=== PATIENT | male | born 1955 | race Caucasian/White ===

== ENCOUNTER 2018-07-30 09:46 | Day surgery (SDC) | payer MEDICARE, OTHER ==
[~2018-07-30] VITALS: Ht 167.6 cm; Wt 51.0 kg
[~2018-07-30 09:46] MED LIST: ASPI325 PO; ASPI81CH PO; ATOR40TA PO; Aspirin EC81 MG PO; CILO100 PO; CLON.5 PO; DULO30 PO; HYDACE10B PO; HYDACE5 PO; IBUP400 PO; Metoprolol Tart25 MG PO; PROM25 PO; TRAZ100 PO; VENL150ER PO; VICODIN HP 10-1 EACH PO
== END 2018-07-30 19:10 | disposition home or self-care (01) ==
LOC: MHTC 09:46 → ICUE 13:46 → MHTC 19:10
PROC: B410ZZZ Fluoroscopy of Abdominal Aorta (ICD-10-PCS; principal; 2018-07-30)
PROC: 04JY3ZZ Inspection of Lower Artery, Percutaneous Approach (ICD-10-PCS; principal; 2018-07-30)
PROC: B41GZZZ Fluoroscopy of Left Lower Extremity Arteries (ICD-10-PCS; principal; 2018-07-30)
DX: I73.9 Peripheral vascular disease, unspecified (principal); I74.5 Embolism and thrombosis of iliac artery; I70.0 Atherosclerosis of aorta; F17.210 Nicotine dependence, cigarettes, uncomplicated; I25.10 Atherosclerotic heart disease of native coronary artery without angina pectoris; Z95.1 Presence of aortocoronary bypass graft; Z95.2 Presence of prosthetic heart valve; Z79.82 Long term (current) use of aspirin; Z79.891 Long term (current) use of opiate analgesic; Z79.899 Other long term (current) drug therapy
CPT/HCPCS: 36140; 75630; 75774; 76937; 85347; 99152; 99153; C1769; C1887; J1644; J2250; J2720; J3010; J7030; J7040; Q9967

== ENCOUNTER → 2018-10-28 | Outpatient (CLI) | payer MEDICARE, OTHER ==
[2018-10-29 14:20] LABS: Stool Occult Bld Immuno 1 Negative (NEGATIVE)
== END | disposition home or self-care (01) ==
LOC: LAB 10:30 → LAB SHORT 10:30
PROVIDERS: Internal Medicine
DX: D53.9 Nutritional anemia, unspecified (principal)
CPT/HCPCS: 82274

== ENCOUNTER → 2018-11-29 | Outpatient (CLI) | payer MEDICARE, OTHER ==
[~2018-11-29] MED LIST changes: +ALBU3IS INH; +ALBU90OI INH; +Aspir-Trin325 MG PO; +FAMO20; +HYDR-86; +Prednisone20 MG PO
[2018-11-29 08:54] LABS: BASOPHILS ABSOLUTE AUTO 0.04 K/mm3 (0.00-0.23); BASOPHILS PERCENT AUTO 1 % (0-2); EOSINOPHILS ABSOLUTE AUTO 0.38 K/mm3 (0.00-0.68); EOSINOPHILS PERCENT AUTO 5 % (0-6); Hematocrit 37.1 % (37.0-53.0); Hemoglobin 12.4 g/dL (13.5-17.5); IMMATURE GRAN ABSOLUTE AUTO 0.01 K/mm3 (0.00-0.10); IMMATURE GRAN PERCENT AUTO 0 % (0-1); LYMPHOCYTES ABSOLUTE AUTO 1.47 K/mm3 (0.84-5.20); LYMPHOCYTES PERCENT AUTO 21 % (21-46); MONOCYTES ABSOLUTE AUTO 0.52 K/mm3 (0.16-1.47); MONOCYTES PERCENT AUTO 7 % (4-13); Mean Corpuscular HGB Conc 33.4 g/dL (31.5-36.5); Mean Corpuscular Volume 102 fL (80-100); Mean Platelet Volume 9.5 fL (9.1-12.4); NEUTROPHILS ABSOLUTE AUTO 4.56 K/mm3 (1.96-9.15); NEUTROPHILS PERCENT AUTO 65 % (41-73); Platelet Count 193 K/mm3 (150-400); RDW Standard Deviation 45.4 fL (35.1-46.3); Red Blood Cell Count 3.65 M/mm3 (4.30-5.90); White Blood Cell Count 6.98 K/mm3 (4.00-11.30)
[2018-11-29 09:04] LABS: Alanine Aminotransfer (ALT/SGP 44 U/L (12-78); Albumin, Blood 3.5 g/dL (3.4-5.0); Albumin/Globulin Ratio 0.9 (0.8-1.8); Alk Phos 241 U/L (40-126); Anion Gap 7 mmol/L (6-16); Aspartate Aminotrans (AST/SGOT 29 U/L (12-37); Bilirubin, Total 0.4 mg/dL (0.1-1.0); Blood Urea Nitrogen 15 mg/dL (8-24); Bun/Creatinine Ratio 14.6 (12.0-20.0); CO2, Blood 29 mmol/L (21-32); Calcium, Blood 8.6 mg/dL (8.5-10.1); Chloride, Blood 101 mmol/L (98-108); Creatinine, Blood 1.03 mg/dL (0.60-1.20); Globulin, Blood 3.8 g/dL (2.2-4.0); Glomerular Filtration Rate >60 (60-); Glucose, Blood 79 mg/dL (70-99); Potassium, Blood 4.4 mmol/L (3.5-5.5); Sodium, Blood 137 mmol/L (136-145); Total Protein, Blood 7.3 g/dL (6.4-8.2)
[2018-11-29 09:23] LABS: International Normalized Ratio 1.03; Prothrombin Time Results 10.6 Sec (9.7-11.5)
== END | disposition home or self-care (01) ==
LOC: LAB EV 08:49 → LAB SHORT 08:49
PROVIDERS: General Practice
DX: K92.2 Gastrointestinal hemorrhage, unspecified (principal); R19.7 Diarrhea, unspecified
CPT/HCPCS: 80053; 85025; 85610; 85730

== ENCOUNTER → 2018-11-30 | Outpatient (CLI) | payer MEDICARE, OTHER ==
[2018-11-30 11:52] LABS: Adenovirus F 40/41 Not Detected (NOT DETECT); Astrovirus Not Detected (NOT DETECT); Campylobacter Sp Not Detected (NOT DETECT); Cryptosporidium Not Detected (NOT DETECT); Cyclospora Cayetanensis Not Detected (NOT DETECT); E. Coli O157 Not Detected (NOT DETECT); Entamoeba Histolytica Not Detected (NOT DETECT); Enteroaggregative E. coli-EAEC Not Detected (NOT DETECT); Enteropathogenic E. coli-EPEC Not Detected (NOT DETECT); Enterotoxigenic E. coli-ETEC Not Detected (NOT DETECT); Giardia Lamblia Not Detected (NOT DETECT); Norovirus GI/GII Not Detected (NOT DETECT); Plesiomonas Shigelloides Not Detected (NOT DETECT); Rotavirus A Not Detected (NOT DETECT); Salmonella Sp Not Detected (NOT DETECT); Shiga Toxin-prod E. coli-STEC Not Detected (NOT DETECT); Shigella/Enteroin E. coli-EIEC Not Detected (NOT DETECT); Vibrio Cholerae Not Detected (NOT DETECT); Vibrio Sp Not Detected (NOT DETECT); Yersinia Enterocolitica Not Detected (NOT DETECT)
[2018-11-30 14:21] LABS: Sapovirus Detected (NOT DETECT)
== END | disposition home or self-care (01) ==
LOC: LAB EV 07:30 → LAB SHORT 07:30
PROVIDERS: General Practice
DX: K92.2 Gastrointestinal hemorrhage, unspecified (principal)
CPT/HCPCS: 87507

== ENCOUNTER 2018-12-27 16:22 | Emergency (ER) | payer MEDICARE, OTHER ==
[~2018-12-27] VITALS: Ht 170.2 cm; Wt 48.1 kg
[~2018-12-27 16:22] MED LIST changes: -ALBU3IS INH; -ALBU90OI INH; -Aspir-Trin325 MG PO; -FAMO20; -HYDR-86; -Prednisone20 MG PO
[2018-12-27 17:20] LABS: BASOPHILS ABSOLUTE AUTO 0.04 K/mm3 (0.00-0.23); BASOPHILS PERCENT AUTO 1 % (0-2); EOSINOPHILS ABSOLUTE AUTO 0.01 K/mm3 (0.00-0.68); EOSINOPHILS PERCENT AUTO 0 % (0-6); Hematocrit 38.8 % (37.0-53.0); Hemoglobin 12.7 g/dL (13.5-17.5); IMMATURE GRAN ABSOLUTE AUTO 0.02 K/mm3 (0.00-0.10); IMMATURE GRAN PERCENT AUTO 0 % (0-1); LYMPHOCYTES ABSOLUTE AUTO 0.54 K/mm3 (0.84-5.20); LYMPHOCYTES PERCENT AUTO 12 % (21-46); MONOCYTES ABSOLUTE AUTO 0.52 K/mm3 (0.16-1.47); MONOCYTES PERCENT AUTO 11 % (4-13); Mean Corpuscular HGB 34.1 pg (26.0-34.0); Mean Corpuscular HGB Conc 32.7 g/dL (31.5-36.5); Mean Corpuscular Volume 104 fL (80-100); Mean Platelet Volume 8.8 fL (9.1-12.4); NEUTROPHILS ABSOLUTE AUTO 3.52 K/mm3 (1.96-9.15); NEUTROPHILS PERCENT AUTO 76 % (41-73); Platelet Count 194 K/mm3 (150-400); RDW Coefficient Variation 12.3 % (11.7-14.2); RDW Standard Deviation 47.1 fL (35.1-46.3); Red Blood Cell Count 3.72 M/mm3 (4.30-5.90); White Blood Cell Count 4.65 K/mm3 (4.00-11.30)
[2018-12-27 17:50] LABS: Alanine Aminotransfer (ALT/SGP 34 U/L (12-78); Albumin, Blood 3.8 g/dL (3.4-5.0); Alk Phos 95 U/L (50-136); Anion Gap 7 mmol/L (6-16); Aspartate Aminotrans (AST/SGOT 27 U/L (12-37); Bilirubin, Total 0.4 mg/dL (0.1-1.0); Blood Urea Nitrogen 12 mg/dL (8-24); Bun/Creatinine Ratio 13.4 (12.0-20.0); CO2, Blood 27 mmol/L (21-32); Calcium, Blood 8.4 mg/dL (8.5-10.1); Chloride, Blood 101 mmol/L (98-108); Glomerular Filtration Rate >60 (60-); Glucose, Blood 97 mg/dL (70-99); Potassium, Blood 3.9 mmol/L (3.5-5.5); Sodium, Blood 135 mmol/L (136-145); Total Protein, Blood 7.8 g/dL (6.4-8.2); Troponin I <0.015 ng/mL (0.000-0.040)
[2018-12-27] MEDS ORDERED: Prednisone20 MG PO (18:44)
[2018-12-27] MEDS ORDERED: ALBU3IS INH (18:44)
[2018-12-27] MEDS ORDERED: ALBU90OI INH (18:44)
[2018-12-31] MEDS ORDERED: Aspir-Trin325 MG PO (12:53)
== END 2018-12-27 18:59 | disposition home or self-care (01) ==
LOC: ER 16:22
PROVIDERS: Physician Assistant
DX: J44.1 Chronic obstructive pulmonary disease with (acute) exacerbation (principal); F32.9 Major depressive disorder, single episode, unspecified; F17.200 Nicotine dependence, unspecified, uncomplicated; Z79.899 Other long term (current) drug therapy; Z79.82 Long term (current) use of aspirin
CPT/HCPCS: 36415; 71046; 80053; 83880; 84484; 85025; 93005; 93010; 94640; 96374; 99284-25; J2920

== ENCOUNTER 2019-01-09 09:23 | Day surgery (SDC) | payer MEDICARE, OTHER ==
[~2019-01-09] VITALS: Ht 170.2 cm; Wt 50.3 kg
[~2019-01-09 09:23] MED LIST changes: +ALBU3IS INH; +ALBU90OI INH; +Aspir-Trin325 MG PO; +Prednisone20 MG PO
[2019-01-09] MEDS ORDERED: HYDR-86 (10:15)
[2019-01-09] MEDS ORDERED: FAMO20 (10:15)
--- NOTE | 2019-01-09 10:32 | NUR ---
01/09/19 1032 Catie Butler PATIENT CLEAR FROM WHEEZING AFTER THE DUONEB WAS COMPLETE
--- NOTE | 2019-01-09 11:14 | NUR ---
01/09/19 1114 Catie Butler SIMETHICONE FLUSH THROUGH BIOPSY PORT PER DR FINLEY
--- NOTE | 2019-01-09 13:19 | NUR ---
01/09/19 131Ramsey Petersen LATE ENTRY: DR. CRUZ AWARE OF PT'S WHEEZES POST COLONOSCOPY. PT HAS CHRONIC WHEEZE. PER DR. CRUZ, PT IS OK TO NOT RECEIVE NEBULIZER POST COLONOSCOPY AND THAT PT CAN TAKE HIS INHALER/NEBULIZER AT HOME. PT WAS 95% AT ROOM AIR POST COLONOSCOPY
== END 2019-01-09 13:11 | disposition home or self-care (01) ==
LOC: ORSCSDS 09:23
PROVIDERS: Student in an Organized Health Care Education/Training Program
PROC: 0DBN8ZX Excision of Sigmoid Colon, Via Natural or Artificial Opening Endoscopic, Diagnostic (ICD-10-PCS; principal; 2019-01-09 11:00)
PROC: 0DBH8ZX Excision of Cecum, Via Natural or Artificial Opening Endoscopic, Diagnostic (ICD-10-PCS; principal; 2019-01-09 11:00)
DX: K92.1 Melena (principal); D12.0 Benign neoplasm of cecum; D12.5 Benign neoplasm of sigmoid colon; K63.5 Polyp of colon; K64.4 Residual hemorrhoidal skin tags; K64.8 Other hemorrhoids; G47.33 Obstructive sleep apnea (adult) (pediatric); I25.10 Atherosclerotic heart disease of native coronary artery without angina pectoris; J44.9 Chronic obstructive pulmonary disease, unspecified; F17.210 Nicotine dependence, cigarettes, uncomplicated; E78.5 Hyperlipidemia, unspecified; Z85.818 Personal history of malignant neoplasm of other sites of lip, oral cavity, and pharynx; Z95.1 Presence of aortocoronary bypass graft; Z95.2 Presence of prosthetic heart valve; Z79.82 Long term (current) use of aspirin; Z79.899 Other long term (current) drug therapy
CPT/HCPCS: 88305; J2250; J7120

== ENCOUNTER 2019-06-03 06:30 | Day surgery (SDC) | payer MEDICARE, OTHER ==
[~2019-06-03] VITALS: Ht 167.6 cm; Wt 53.0 kg
[~2019-06-03 06:30] MED LIST changes: +FAMO20; +HYDR-86; +Norco 7.5-3251 EACH PO
--- NOTE | 2019-06-03 07:46 | NUR ---
INTO [facility] ADMISSION STARTED TO UNIT.
--- NOTE | 2019-06-03 08:13 | NUR ---
06/03/19 0812 Gilmar Srivastava 3-LEAD EKG REVIEWED WITH PHYSICIAN PRIOR TO START OF PROCEDURE.Patient to ENDO 2History, Chart, Medications and Allergies reviewed before start of procedure.MONITOR INTACT WITH CONTINUOUS PULSE OXIMETRY AND INTERMITTENT BP.Patient confirms NPO status and agrees with scheduled surgery.O2 VIA N/C INTACT THROUGHOUT SEDATION/PROCEDURE. See Anesthesia record
--- NOTE | 2019-06-03 08:54 | NUR ---
INTO STEP WITH RN. RECOVERY STARTED PATIENT WAKING VSS TAKEN AND PATIENT REQUESTED AND RECIEVED COFFEE
--- NOTE | 2019-06-03 09:08 | NUR ---
CALLED WILL BE COMING BACK INSIDE HOSPITAL. WILL CONTINUE CHECKING FOR HER
--- NOTE | 2019-06-03 09:24 | NUR ---
PATIENT SENT HOME AT THIS TIME WITH ALL BELONGINGS AND DISCHARGE INSTRUCTIONS
== END 2019-06-03 23:10 | disposition home or self-care (01) ==
LOC: ORSCMMR 06:30 → ORD 08:15 → ORSCMMR 08:15
PROVIDERS: Surgery
PROC: 0DH63UZ Insertion of Feeding Device into Stomach, Percutaneous Approach (ICD-10-PCS; principal; 2019-06-03 08:15)
DX: R13.10 Dysphagia, unspecified (principal); Z79.899 Other long term (current) drug therapy; E78.5 Hyperlipidemia, unspecified; J44.9 Chronic obstructive pulmonary disease, unspecified; G47.33 Obstructive sleep apnea (adult) (pediatric); F17.210 Nicotine dependence, cigarettes, uncomplicated
CPT/HCPCS: C1769; J0690; J2704; J7120

== ENCOUNTER 2020-02-11 22:52 | Emergency (ER) | payer MEDICARE, BC, OTHER ==
[~2020-02-11] VITALS: Ht 170.2 cm; Wt 45.8 kg
[2020-02-11 23:20] LABS: BASOPHILS ABSOLUTE AUTO 0.03 K/mm3 (0.00-0.23); BASOPHILS PERCENT AUTO 0 % (0-2); EOSINOPHILS ABSOLUTE AUTO 0.05 K/mm3 (0.00-0.68); EOSINOPHILS PERCENT AUTO 1 % (0-6); Hematocrit 39.5 % (37.0-53.0); Hemoglobin 13.1 g/dL (13.5-17.5); IMMATURE GRAN ABSOLUTE AUTO 0.03 K/mm3 (0.00-0.10); IMMATURE GRAN PERCENT AUTO 0 % (0-1); LYMPHOCYTES ABSOLUTE AUTO 0.68 K/mm3 (0.84-5.20); LYMPHOCYTES PERCENT AUTO 8 % (21-46); MONOCYTES ABSOLUTE AUTO 0.35 K/mm3 (0.16-1.47); MONOCYTES PERCENT AUTO 4 % (4-13); Mean Corpuscular HGB Conc 33.2 g/dL (31.5-36.5); Mean Platelet Volume 9.1 fL (9.1-12.4); NEUTROPHILS ABSOLUTE AUTO 7.67 K/mm3 (1.96-9.15); NEUTROPHILS PERCENT AUTO 87 % (41-73); Platelet Count 199 K/mm3 (150-400); RDW Coefficient Variation 12.6 % (11.7-14.2); RDW Standard Deviation 47.3 fL (35.1-46.3); Red Blood Cell Count 3.85 M/mm3 (4.30-5.90); White Blood Cell Count 8.81 K/mm3 (4.00-11.30)
[2020-02-11 23:33] LABS: Mean Corpuscular Volume 103 fL (80-100)
[2020-02-11 23:40] LABS: Alanine Aminotransfer (ALT/SGP 28 U/L (12-78); Albumin, Blood 3.4 g/dL (3.4-5.0); Albumin/Globulin Ratio 0.9 (0.8-1.8); Alk Phos 65 U/L (50-136); Anion Gap 5 mmol/L (6-16); Aspartate Aminotrans (AST/SGOT 22 U/L (12-37); Bilirubin, Total 0.3 mg/dL (0.1-1.0); Blood Urea Nitrogen 12 mg/dL (8-24); Bun/Creatinine Ratio 14.7 (12.0-20.0); CO2, Blood 30 mmol/L (21-32); Calcium, Blood 9.1 mg/dL (8.5-10.1); Chloride, Blood 104 mmol/L (98-108); Creatinine, Blood 0.82 mg/dL (0.60-1.20); Globulin, Blood 3.9 g/dL (2.2-4.0); Glomerular Filtration Rate >60 (60-); Glucose, Blood 133 mg/dL (70-99); Potassium, Blood 4.2 mmol/L (3.5-5.5); Sodium, Blood 139 mmol/L (136-145); Total Protein, Blood 7.3 g/dL (6.4-8.2); Troponin I <0.015 ng/mL (0.000-0.040)
[2020-02-12] MEDS ORDERED: PRED10 PO (00:33)
== END 2020-02-12 00:50 | disposition home or self-care (01) ==
LOC: ER 22:52
PROVIDERS: Emergency Medicine
DX: J44.1 Chronic obstructive pulmonary disease with (acute) exacerbation (principal); F32.9 Major depressive disorder, single episode, unspecified; F17.200 Nicotine dependence, unspecified, uncomplicated; Z79.899 Other long term (current) drug therapy
CPT/HCPCS: 36415; 80053; 83880; 84484; 85025; 93005; 93010; 99284-25

== ENCOUNTER → 2021-08-21 | Outpatient (CLI) | payer MEDICARE, BC ==
[~2021-08-21] MED LIST changes: +PRED10 PO
[2021-08-21 11:10] LABS: BASOPHILS ABSOLUTE AUTO 0.02 K/mm3 (0.00-0.23); BASOPHILS PERCENT AUTO 1 % (0-2); EOSINOPHILS ABSOLUTE AUTO 0.01 K/mm3 (0.00-0.68); EOSINOPHILS PERCENT AUTO 0 % (0-6); Hematocrit 39.6 % (37.0-53.0); Hemoglobin 13.8 g/dL (13.5-17.5); IMMATURE GRAN ABSOLUTE AUTO 0.02 K/mm3 (0.00-0.10); IMMATURE GRAN PERCENT AUTO 1 % (0-1); LYMPHOCYTES PERCENT AUTO 24 % (21-46); MONOCYTES PERCENT AUTO 11 % (4-13); Mean Corpuscular HGB 33.7 pg (26.0-34.0); Mean Corpuscular HGB Conc 34.8 g/dL (31.5-36.5); Mean Corpuscular Volume 97 fL (80-100); NEUTROPHILS ABSOLUTE AUTO 2.44 K/mm3 (1.96-9.15); NEUTROPHILS PERCENT AUTO 64 % (41-73); RDW Coefficient Variation 12.2 % (11.7-14.2); RDW Standard Deviation 43.4 fL (35.1-46.3); White Blood Cell Count 3.79 K/mm3 (4.00-11.30)
[2021-08-21 11:22] LABS: Alanine Aminotransfer (ALT/SGP 28 U/L (12-78); Albumin, Blood 3.3 g/dL (3.4-5.0); Albumin/Globulin Ratio 0.8 (0.8-1.8); Alk Phos 67 U/L (40-126); Anion Gap 6 mmol/L (6-16); Aspartate Aminotrans (AST/SGOT 34 U/L (12-37); Bilirubin, Total 0.4 mg/dL (0.1-1.0); Blood Urea Nitrogen 15 mg/dL (8-24); Bun/Creatinine Ratio 15.6 (12.0-20.0); CO2, Blood 34 mmol/L (21-32); Calcium, Blood 8.5 mg/dL (8.5-10.1); Chloride, Blood 93 mmol/L (98-108); Creatinine, Blood 0.96 mg/dL (0.60-1.20); Globulin, Blood 3.9 g/dL (2.2-4.0); Glomerular Filtration Rate >60 (60-); Glucose, Blood 90 mg/dL (70-99); Platelet Count 73 K/mm3 (150-400); Potassium, Blood 4.9 mmol/L (3.5-5.5); Sodium, Blood 133 mmol/L (136-145); Total Protein, Blood 7.2 g/dL (6.4-8.2); Troponin I <0.017 ng/mL (0.000-0.040)
== END | disposition home or self-care (01) ==
LOC: LAB SHORT 11:05
PROVIDERS: Physician Assistant Surgical
DX: U07.1 COVID-19 (principal); R09.02 Hypoxemia
CPT/HCPCS: 80053; 83880; 84484; 85025; 85379

== ENCOUNTER 2021-08-24 10:29 | Emergency (ER) | payer MEDICARE, BC ==
[~2021-08-24] VITALS: Ht 170.2 cm; Wt 46.3 kg
[2021-08-24 11:19] LABS: BASOPHILS ABSOLUTE AUTO 0.01 K/mm3 (0.00-0.23); BASOPHILS PERCENT AUTO 0 % (0-2); EOSINOPHILS PERCENT AUTO 0 % (0-6); Hematocrit 38.4 % (37.0-53.0); IMMATURE GRAN ABSOLUTE AUTO 0.05 K/mm3 (0.00-0.10); IMMATURE GRAN PERCENT AUTO 1 % (0-1); LYMPHOCYTES ABSOLUTE AUTO 0.26 K/mm3 (0.84-5.20); LYMPHOCYTES PERCENT AUTO 3 % (21-46); MONOCYTES ABSOLUTE AUTO 0.37 K/mm3 (0.16-1.47); MONOCYTES PERCENT AUTO 4 % (4-13); Mean Corpuscular HGB 33.3 pg (26.0-34.0); Mean Corpuscular HGB Conc 33.9 g/dL (31.5-36.5); Mean Corpuscular Volume 99 fL (80-100); Mean Platelet Volume 9.7 fL (9.1-12.4); NEUTROPHILS ABSOLUTE AUTO 7.67 K/mm3 (1.96-9.15); NEUTROPHILS PERCENT AUTO 92 % (41-73); Platelet Count 142 K/mm3 (150-400); RDW Coefficient Variation 12.3 % (11.7-14.2); RDW Standard Deviation 44.4 fL (35.1-46.3); White Blood Cell Count 8.36 K/mm3 (4.00-11.30)
[2021-08-24 11:43] LABS: Alanine Aminotransfer (ALT/SGP 46 U/L (12-78); Albumin, Blood 2.8 g/dL (3.4-5.0); Albumin/Globulin Ratio 0.7 (0.8-1.8); Alk Phos 60 U/L (50-136); Anion Gap 3 mmol/L (6-16); Aspartate Aminotrans (AST/SGOT 44 U/L (12-37); Bilirubin, Total 0.5 mg/dL (0.1-1.0); Blood Urea Nitrogen 17 mg/dL (8-24); Bun/Creatinine Ratio 25.6 (12.0-20.0); CO2, Blood 35 mmol/L (21-32); Calcium, Blood 8.8 mg/dL (8.5-10.1); Chloride, Blood 94 mmol/L (98-108); Creatinine, Blood 0.66 mg/dL (0.60-1.20); Glomerular Filtration Rate >60 (60-); Glucose, Blood 147 mg/dL (70-99); Potassium, Blood 4.6 mmol/L (3.5-5.5); Sodium, Blood 132 mmol/L (136-145); Total Protein, Blood 6.8 g/dL (6.4-8.2); Troponin I <0.015 ng/mL (0.000-0.040)
== END 2021-08-24 17:22 | disposition home or self-care (01) ==
LOC: ER 10:29
PROVIDERS: Emergency Medicine
DX: U07.1 COVID-19 (principal); J44.1 Chronic obstructive pulmonary disease with (acute) exacerbation; F17.200 Nicotine dependence, unspecified, uncomplicated; Z79.82 Long term (current) use of aspirin; Z79.899 Other long term (current) drug therapy
CPT/HCPCS: 36415; 71045; 80053; 83880; 84484; 85025; 93005; 93010; 99284-25

== ENCOUNTER → 2021-11-02 | Outpatient (CLI) | payer MEDICARE, BC ==
[2021-11-02 14:00] LABS: U Amphetamine Screen Not Detected; U Barbituate Screen Not Detected; U Benzodiazapine Screen Not Detected; U Buprenorphine Screen Not Detected; U Cannabinoids Screen Not Detected; U Cocaine Screen Not Detected; U Methadone Screen Not Detected; U Methamphetamine Screen Not Detected; U Opiates Screen DETECTED; U Oxycodone Screen Not Detected; U Phencyclidine Screen Not Detected; U Propoxyphene Screen Not Detected
== END | disposition home or self-care (01) ==
LOC: LAB SHORT 12:39 → LAB 12:39
PROVIDERS: Internal Medicine Hematology & Oncology
DX: Z51.81 Encounter for therapeutic drug level monitoring (principal); Z79.899 Other long term (current) drug therapy

== ENCOUNTER → 2021-11-27 | Outpatient (CLI) | payer MEDICARE, BC | END | disposition home or self-care (01) | LOC: LAB SHORT 09:17 → LAB 09:17 | DX: J44.1 Chronic obstructive pulmonary disease with (acute) exacerbation (principal) | CPT/HCPCS: 87070; 87077; 87186; 87205 ==

== ENCOUNTER → 2022-06-02 | Outpatient (CLI) | payer MEDICARE, BC ==
[2022-06-02 12:23] LABS: U Amphetamine Screen Not Detected; U Barbituate Screen Not Detected; U Benzodiazapine Screen Not Detected; U Buprenorphine Screen Not Detected; U Cannabinoids Screen Not Detected; U Cocaine Screen Not Detected; U Methadone Screen Not Detected; U Methamphetamine Screen Not Detected; U Opiates Screen DETECTED; U Oxycodone Screen Not Detected; U Phencyclidine Screen Not Detected; U Propoxyphene Screen Not Detected
== END | disposition home or self-care (01) ==
LOC: LAB 10:32 → LAB SHORT 10:32
PROVIDERS: Internal Medicine Hematology & Oncology
DX: Z51.81 Encounter for therapeutic drug level monitoring (principal); Z79.899 Other long term (current) drug therapy

== ENCOUNTER → 2022-07-03 | Outpatient (CLI) | payer MEDICARE, BC ==
[2022-07-03 15:36] LABS: U Amphetamine Screen Not Detected; U Barbituate Screen Not Detected; U Benzodiazapine Screen Not Detected; U Buprenorphine Screen Not Detected; U Cannabinoids Screen Not Detected; U Cocaine Screen Not Detected; U Methadone Screen Not Detected; U Methamphetamine Screen Not Detected; U Opiates Screen DETECTED; U Oxycodone Screen Not Detected; U Phencyclidine Screen Not Detected; U Propoxyphene Screen Not Detected
== END | disposition home or self-care (01) ==
LOC: LAB SHORT 10:40
PROVIDERS: Internal Medicine Hematology & Oncology
DX: Z51.81 Encounter for therapeutic drug level monitoring (principal); Z79.899 Other long term (current) drug therapy

== ENCOUNTER → 2022-08-03 | Outpatient (CLI) | payer MEDICARE, BC ==
[2022-08-03 13:25] LABS: U Amphetamine Screen Not Detected; U Barbituate Screen Not Detected; U Benzodiazapine Screen Not Detected; U Buprenorphine Screen Not Detected; U Cannabinoids Screen Not Detected; U Cocaine Screen Not Detected; U Methadone Screen Not Detected; U Methamphetamine Screen Not Detected; U Opiates Screen DETECTED; U Oxycodone Screen Not Detected; U Phencyclidine Screen Not Detected; U Propoxyphene Screen Not Detected
== END | disposition home or self-care (01) ==
LOC: LAB 11:36 → LAB SHORT 11:36
PROVIDERS: Internal Medicine Hematology & Oncology
DX: Z51.81 Encounter for therapeutic drug level monitoring (principal); Z79.899 Other long term (current) drug therapy

== ENCOUNTER → 2022-09-01 | Outpatient (CLI) | payer MEDICARE, BC ==
[2022-09-01 14:04] LABS: U Amphetamine Screen Not Detected; U Barbituate Screen Not Detected; U Benzodiazapine Screen Not Detected; U Buprenorphine Screen Not Detected; U Cannabinoids Screen Not Detected; U Cocaine Screen Not Detected; U Methadone Screen Not Detected; U Methamphetamine Screen Not Detected; U Opiates Screen DETECTED; U Oxycodone Screen Not Detected; U Phencyclidine Screen Not Detected; U Propoxyphene Screen Not Detected
== END ==
LOC: LAB 12:59 → LAB SHORT 12:59
PROVIDERS: Internal Medicine Hematology & Oncology
DX: Z79.899 Other long term (current) drug therapy (principal)
CPT/HCPCS: G0480

== ENCOUNTER → 2022-10-02 | Outpatient (CLI) | payer MEDICARE, BC ==
[2022-10-02 11:49] LABS: U Amphetamine Screen Not Detected; U Barbituate Screen Not Detected; U Benzodiazapine Screen Not Detected; U Buprenorphine Screen Not Detected; U Cannabinoids Screen Not Detected; U Cocaine Screen Not Detected; U Methadone Screen Not Detected; U Methamphetamine Screen Not Detected; U Opiates Screen DETECTED; U Oxycodone Screen Not Detected; U Phencyclidine Screen Not Detected; U Propoxyphene Screen Not Detected
== END | disposition home or self-care (01) ==
LOC: LAB SHORT 10:25 → LAB 10:25
PROVIDERS: Internal Medicine Hematology & Oncology
DX: Z51.81 Encounter for therapeutic drug level monitoring (principal); Z79.899 Other long term (current) drug therapy

== ENCOUNTER 2022-12-10 11:48 | Inpatient (IN) | payer MEDICARE, BC ==
[~2022-12-10] VITALS: Ht 170.2 cm; Wt 50.3 kg
[2022-12-10] MEDS ORDERED: ALBU90OI INH (12:08)
[2022-12-10] MEDS ORDERED: CARBIDOPA-LEVO1 EAC9 PO (12:09)
[2022-12-10 12:15] LABS: Base Excess Venous -0.3 mmol/L; Bicarbonate Venous 22.7 mmol/L (24.0-30.0); pH Blood Venous 7.32 (7.34-7.37)
[2022-12-10 12:31] LABS: Hemoglobin 13.7 g/dL (13.5-17.5); Mean Corpuscular HGB 34.3 pg (26.0-34.0); Mean Corpuscular HGB Conc 35.1 g/dL (31.5-36.5); Mean Corpuscular Volume 98 fL (80-100); Mean Platelet Volume 10.5 fL (9.1-12.4); Platelet Count 201 K/mm3 (150-400); RDW Coefficient Variation 12.7 % (11.7-14.2); RDW Standard Deviation 45.5 fL (35.1-46.3)
[2022-12-10 12:35] LABS: BAND PERCENT MAN 16 % (0-8); BASOPHILS PERCENT MAN 0 % (0-2); EOSINOPHILS PERCENT MAN 0 % (0-6); LYMPHOCYTES ABSOLUTE MAN 0.13 K/mm3 (0.84-5.20); LYMPHOCYTES PERCENT MAN 1 % (21-46); MONOCYTES PERCENT MAN 0 % (4-13); NEUTROPHILS ABSOLUTE MAN 13.56 K/mm3 (1.96-9.15); SEG NEUTROPHILS PERCENT MAN 83 % (41-73); TOTAL CELLS COUNTED 100
[2022-12-10 12:37] LABS: Albumin, Blood 2.2 g/dL (3.4-5.0); Albumin/Globulin Ratio 0.5 (0.8-1.8); Bilirubin, Total 0.9 mg/dL (0.1-1.0); Bun/Creatinine Ratio 40.2 (12.0-20.0); Calcium, Blood 8.9 mg/dL (8.5-10.1); Creatinine, Blood 1.22 mg/dL (0.60-1.20); Globulin, Blood 4.7 g/dL (2.2-4.0); Total Protein, Blood 6.9 g/dL (6.4-8.2)
[2022-12-10 13:20] LABS: Influenza A, PCR NEGATIVE (NEGATIVE); Influenza B, PCR NEGATIVE (NEGATIVE); Resp Syncytial Virus, PCR NEGATIVE (NEGATIVE); SARS-Cov-2 (COVID-19) PCR, MMC NEGATIVE (NEGATIVE)
--- NOTE | 2022-12-11 04:01 | NUR ---
SHIFT MOSTLY UNREMAKRABLE. AROUND 2300, CRITICAL LAB NOTIFICATION OF 2.7 LACTIC ACID. UP FROM 2.2 EARLIER IN DAY. NOTIFIED HOSPITALIST WHO ORDERED 500 ML NS BOLUS, INCREASE IN CONTINUOUS NS INFUSION TO 150MLS/HOUR, AND AN A SUBSEQUENT LACTIC ACID LAB DRAW IN THE MORNING. SBP HAVE CONTINUED TO RANGE BETWEEN MID 90s TO LOW 100s OVER COURSE OF SHIFT. PATIENT CONTINUES TO DENY ANY PAIN OR DISCOMFORT. SATTING >96%. CALL LIGHT LEFT WITHIN REACH.
[2022-12-11 04:49] LABS: Hematocrit 36.7 % (37.0-53.0); Hemoglobin 12.5 g/dL (13.5-17.5); Mean Corpuscular HGB 33.8 pg (26.0-34.0); Mean Corpuscular HGB Conc 34.1 g/dL (31.5-36.5); Mean Corpuscular Volume 99 fL (80-100); Mean Platelet Volume 9.7 fL (9.1-12.4); Platelet Count 186 K/mm3 (150-400); RDW Coefficient Variation 13.2 % (11.7-14.2); RDW Standard Deviation 48.2 fL (35.1-46.3); White Blood Cell Count 21.91 K/mm3 (4.00-11.30)
[2022-12-11 05:14] LABS: Albumin, Blood 1.9 g/dL (3.4-5.0); Albumin/Globulin Ratio 0.5 (0.8-1.8); Bilirubin, Total 0.5 mg/dL (0.1-1.0); Bun/Creatinine Ratio 37.3 (12.0-20.0); Calcium, Blood 8.2 mg/dL (8.5-10.1); Creatinine, Blood 0.91 mg/dL (0.60-1.20); Globulin, Blood 4.2 g/dL (2.2-4.0); Magnesium, Blood 2.6 mg/dL (1.6-2.4); Potassium, Blood 3.8 mmol/L (3.5-5.5); Total Protein, Blood 6.1 g/dL (6.4-8.2)
[2022-12-11 05:34] LABS: BAND PERCENT MAN 25 % (0-8); BASOPHILS PERCENT MAN 0 % (0-2); EOSINOPHILS PERCENT MAN 0 % (0-6); LYMPHOCYTES ABSOLUTE MAN 0.87 K/mm3 (0.84-5.20); LYMPHOCYTES PERCENT MAN 4 % (21-46); METAMYELOCYTE ABSOLUTE MAN 0.21 K/mm3 (0.00-0.00); METAMYELOCYTE PERCENT MAN 1 % (0-0); MONOCYTES ABSOLUTE MAN 0.21 K/mm3 (0.16-1.47); MONOCYTES PERCENT MAN 1 % (4-13); NEUTROPHILS ABSOLUTE MAN 20.59 K/mm3 (1.96-9.15); SEG NEUTROPHILS PERCENT MAN 69 % (41-73); TOTAL CELLS COUNTED 100
--- NOTE | 2022-12-11 17:47 | NUR ---
SHIFT SUMMARY NO ACUTE CHANGES DURING SHIFT. PT ALERT AND ORIENTED, CALLS APPROPRIATELY. PT REMAINS ON HIFLO, CURRENTLY 35L 50%, TITRATING PER RT TOLERATED. NS INFUSING AT 150ML/HR, IV ABX. NO C/O PAIN. WILL CONTINUE TO MONITOR. CALL LIGHT WITHIN REACH.
--- NOTE | 2022-12-11 19:06 | NUR ---
AWAKE. O2 PER HIGH FLOW (35L/50%). DENIED PAIN, REQUESTS RESP TX. CALL PLACED TO RT. RT TO GIVE TX. CALL LIGHT IN REACH
[2022-12-12 03:50] LABS: Vancomycin, Trough 8.1 ug/mL (5.0-10.0)
--- NOTE | 2022-12-12 04:38 | NUR ---
FLIGHT SECURITY SPECIALIST SUMMARY BP LOW NORMAL, OTHERWISE VSS. IVF OF NS INFUSING AT 150 ML/HR AND ANTIBIOTICS INFUSING PER MD ORDERS. SEE MAR FOR DETAILS. LUNG SOUNDS WHEEZE AND SOME DIMINISHED SOUNDS PER AUSCULTATION. VOICED DIFFICULTIES GETTING TO SLEEP. MD WAS NOTIFIED AND INITIALLY ATIVAN 0.5 MG PO ORDERED/GIVEN. MED INEFFECTIVE. LATER MD WAS NOTIFIED AND MELATONIN ORERED/GIVEN. SOME VERBALIZATION OF WANTING TO GET OUT OF BE "TO MOVE THE TRUCK" HE TRIED TO GET OUT OF BED A FEW TIMES. WAS REDIRECTED AND REORIENTED TO TIME AND SITUATION. AGREED TO REMAIN IN BED AND HAS BEEN RESTING QUIETLY WITH SOME WAKEFULNESS SINCE. CALL LIGHT IN REACH. O2 PER HIGH FLOW 35L/50%. SATS IN THE 90'S. WILL CONTINUE TO MONITOR
[2022-12-12 08:12] LABS: BASOPHILS ABSOLUTE AUTO 0.11 K/mm3 (0.00-0.23); BASOPHILS PERCENT AUTO 0 % (0-2); Hematocrit 31.2 % (37.0-53.0); Hemoglobin 10.5 g/dL (13.5-17.5); Mean Corpuscular HGB 34.1 pg (26.0-34.0); Mean Corpuscular HGB Conc 33.7 g/dL (31.5-36.5); Mean Corpuscular Volume 101 fL (80-100); Mean Platelet Volume 10.4 fL (9.1-12.4); Platelet Count 205 K/mm3 (150-400); RDW Coefficient Variation 13.7 % (11.7-14.2); RDW Standard Deviation 51.1 fL (35.1-46.3); Red Blood Cell Count 3.08 M/mm3 (4.30-5.90); White Blood Cell Count 27.59 K/mm3 (4.00-11.30)
[2022-12-12 08:21] LABS: EOSINOPHILS ABSOLUTE AUTO 0.01 K/mm3 (0.00-0.68); EOSINOPHILS PERCENT AUTO 0 % (0-6); IMMATURE GRAN ABSOLUTE AUTO 0.42 K/mm3 (0.00-0.10); IMMATURE GRAN PERCENT AUTO 2 % (0-1); LYMPHOCYTES ABSOLUTE AUTO 0.37 K/mm3 (0.84-5.20); LYMPHOCYTES PERCENT AUTO 1 % (21-46); MONOCYTES ABSOLUTE AUTO 0.14 K/mm3 (0.16-1.47); MONOCYTES PERCENT AUTO 1 % (4-13); NEUTROPHILS ABSOLUTE AUTO 26.54 K/mm3 (1.96-9.15); NEUTROPHILS PERCENT AUTO 96 % (41-73)
[2022-12-12 08:30] LABS: Albumin, Blood 1.7 g/dL (3.4-5.0); Albumin/Globulin Ratio 0.5 (0.8-1.8); Bilirubin, Total 0.3 mg/dL (0.1-1.0); Bun/Creatinine Ratio 36.4 (12.0-20.0); Calcium, Blood 8.1 mg/dL (8.5-10.1); Creatinine, Blood 0.85 mg/dL (0.60-1.20); Globulin, Blood 3.7 g/dL (2.2-4.0); Potassium, Blood 3.6 mmol/L (3.5-5.5); Total Protein, Blood 5.4 g/dL (6.4-8.2)
[2022-12-12 08:53] LABS: BAND PERCENT MAN 5 % (0-8); BASOPHILS PERCENT MAN 0 % (0-2); EOSINOPHILS PERCENT MAN 0 % (0-6); MONOCYTES PERCENT MAN 0 % (4-13); NEUTROPHILS ABSOLUTE MAN 27.59 K/mm3 (1.96-9.15); SEG NEUTROPHILS PERCENT MAN 95 % (41-73); TOTAL CELLS COUNTED 100
--- NOTE | 2022-12-12 18:18 | NUR ---
SHIFT SUMMARY: PT ALERT AND ORIENTED X2-3. PT WOULD STATE THAT HE KNOWS HE IS IN HOSPITAL BUT WILL QUICKLY STATE COMMENTS THAT PERTAIN TO BEING AT HOME. HAD TO REORIENT PT MULTIPLE TIMES TODAY HE THOUGHT HE WAS LEAVING. PT HAD AND FAMILY IN AND HAS NOT HAD EPISODES OF CONFUSION SINCE. RECEIVED IN REPORT THAT PT IS VERY ANXIOUS AT NIGHT AND HAS A DIFFICULT TIME SLEEPING. RECEIVED AN ORDER FOR 10MG MELATONIN AT BEDTIME AND A NICOTINE PATCH TO HELP WITH CRAVINGS. PT REMAINS ON HEATED HIGH FLOW AT 35 LPM AND O2 DOWN AT 40%. PT TOLERATING WELL WITH SATS >92%. PT TOLERATING ALL ABX TREATMENTS. PT RECEIVED CHEST XRAY THIS SHIFT FOR SOB AND FOLLOW-UP FOR PNEUMONIA. CALL LIGHT IN REACH. BED IN LOWEST POSITION. WILL CONTINUE TO MONITOR.
[2022-12-13 03:46] LABS: Hematocrit 30.8 % (37.0-53.0); Hemoglobin 10.5 g/dL (13.5-17.5); Mean Corpuscular HGB 33.8 pg (26.0-34.0); Mean Corpuscular HGB Conc 34.1 g/dL (31.5-36.5); Mean Corpuscular Volume 99 fL (80-100); Mean Platelet Volume 9.8 fL (9.1-12.4); Platelet Count 201 K/mm3 (150-400); RDW Coefficient Variation 13.7 % (11.7-14.2); RDW Standard Deviation 49.8 fL (35.1-46.3); Red Blood Cell Count 3.11 M/mm3 (4.30-5.90); White Blood Cell Count 22.88 K/mm3 (4.00-11.30)
[2022-12-13 04:04] LABS: Vancomycin, Trough 12.3 ug/mL (5.0-10.0)
--- NOTE | 2022-12-13 04:13 | NUR ---
SHIFT SUMMARY 67 YR M ADMITTED ON 12/10/22 FOR SEPSIS PNEUMONIA. DNR. PT WAS SOUNDING VERY WHEEZY ON EXPIRATION SO RT WAS CALLED FOR A BREATHING TX. INITIAL TX DID NOT PROVIDE ANY CHANGE SO RT INCREASED HIGH FLOW 02 TO 50 L @ 68%. PT COUGH WAS VERY WET SOUNDING BUT OVER A SHORT PERIOD OF TIME LUNG SOUNDS IMPROVED AND 02 SATS HAVE REMAINED STABLE IN THE 90'S. PT HAS BEEN RESTING/SLEEPING FOR MOST OF THIS SHIFT. EARLY A.M. VANCO TROUGH WAS ELEVATED AT 12.3 SO PHARMACY ADJUSTED VANCO DOSE. PT HAS BEEN PLEASANT AND COOPERATIVE AND HAS BEEN INDEPENDANT TO THE BATHROOM OR USING URINAL AT BEDSIDE.
[2022-12-13 04:25] LABS: Albumin, Blood 1.6 g/dL (3.4-5.0); Albumin/Globulin Ratio 0.5 (0.8-1.8); Bilirubin, Total 0.4 mg/dL (0.1-1.0); Bun/Creatinine Ratio 31.5 (12.0-20.0); Calcium, Blood 7.9 mg/dL (8.5-10.1); Creatinine, Blood 0.7 mg/dL (0.60-1.20); Globulin, Blood 3.5 g/dL (2.2-4.0); Potassium, Blood 3.1 mmol/L (3.5-5.5); Total Protein, Blood 5.1 g/dL (6.4-8.2)
[2022-12-13 04:42] LABS: BAND PERCENT MAN 1 % (0-8); BASOPHILS PERCENT MAN 0 % (0-2); EOSINOPHILS PERCENT MAN 0 % (0-6); LYMPHOCYTES ABSOLUTE MAN 0.22 K/mm3 (0.84-5.20); LYMPHOCYTES PERCENT MAN 1 % (21-46); MONOCYTES ABSOLUTE MAN 0.22 K/mm3 (0.16-1.47); MONOCYTES PERCENT MAN 1 % (4-13); NEUTROPHILS ABSOLUTE MAN 22.42 K/mm3 (1.96-9.15); SEG NEUTROPHILS PERCENT MAN 97 % (41-73); TOTAL CELLS COUNTED 100
--- NOTE | 2022-12-13 18:18 | NUR ---
Received report from ongoing nurse at bedside. Pt had multiple SOB/Wheezings epiosdes overnight. Airvo increased overnight. Pt seem to be doing a lot better. Pt is currently receiving a breathing treatment and doing well. Pt axox4. Pt states he seems to be feeling a lot better than last night. Pt had one episode of SOB where respiratory was paged for a prn breathing treatmen. VSS stable but HR a little elevated. Pt having trouble coughing up phlegm. Pt resting comfortably afterwards. Pt uses call light appropriate.
--- NOTE | 2022-12-13 19:10 | NUR ---
Report handoff given to nurse.
--- NOTE | 2022-12-14 03:58 | NUR ---
SHIFT UNREMARKABLE. PATIENT TOOK 2100 MEDICATIONS WITHOUT DIFFICULTY AND THEN SLEPT THROUGH MOST OF REMAINDER OF SHIFT. CONTINUOUS PULSE OXIMETER CONTINUES TO SHOW PATIENT HR RUNNING LOW TO HIGH 90s. O2 SATURATION REMAINS ABOVE 92% WITH CURRENT AIRVO IN PLACE. CALL LIGHT LEFT WITHIN REACH.
[2022-12-14 05:38] LABS: Hematocrit 32.9 % (37.0-53.0); Hemoglobin 11.4 g/dL (13.5-17.5); Mean Corpuscular HGB 33.9 pg (26.0-34.0); Mean Corpuscular HGB Conc 34.7 g/dL (31.5-36.5); Mean Corpuscular Volume 98 fL (80-100); Mean Platelet Volume 9.9 fL (9.1-12.4); Platelet Count 219 K/mm3 (150-400); RDW Coefficient Variation 13.7 % (11.7-14.2); RDW Standard Deviation 49.3 fL (35.1-46.3); Red Blood Cell Count 3.36 M/mm3 (4.30-5.90); White Blood Cell Count 13.34 K/mm3 (4.00-11.30)
[2022-12-14 06:02] LABS: BASOPHILS PERCENT MAN 0 % (0-2); EOSINOPHILS PERCENT MAN 0 % (0-6); LYMPHOCYTES ABSOLUTE MAN 0.13 K/mm3 (0.84-5.20); LYMPHOCYTES PERCENT MAN 1 % (21-46); MONOCYTES PERCENT MAN 0 % (4-13); SEG NEUTROPHILS PERCENT MAN 99 % (41-73); TOTAL CELLS COUNTED 100
[2022-12-14 06:09] LABS: Albumin, Blood 1.6 g/dL (3.4-5.0); Albumin/Globulin Ratio 0.4 (0.8-1.8); Bilirubin, Total 0.5 mg/dL (0.1-1.0); Bun/Creatinine Ratio 33.2 (12.0-20.0); Calcium, Blood 8.4 mg/dL (8.5-10.1); Creatinine, Blood 0.6 mg/dL (0.60-1.20); Globulin, Blood 4.1 g/dL (2.2-4.0); Potassium, Blood 3.8 mmol/L (3.5-5.5); Total Protein, Blood 5.7 g/dL (6.4-8.2)
--- NOTE | 2022-12-14 18:05 | NUR ---
Received report from ongoing nurse. Pt axox3. Pt VSS. Pt on airvo 50L/55% saturating at 91%. Will continue to monitor.
--- NOTE | 2022-12-14 19:12 | NUR ---
Report given to oncoming nurse.
--- NOTE | 2022-12-15 03:57 | NUR ---
SHIFT UNREMARKABLE. PATIENT TOOK 2100 MEDICATIONS WITHOUT DIFFICULTY THEN SLEPT THROUGH MUCH OF REMAINDER OF SHIFT. O2 SATURATION REMAINING ABOVE >90% ON 50 L VIA AIRVO. CALL LIGHT LEFT WITHIN REACH.
[2022-12-15 04:44] LABS: BASOPHILS ABSOLUTE AUTO 0.03 K/mm3 (0.00-0.23); BASOPHILS PERCENT AUTO 0 % (0-2); EOSINOPHILS PERCENT AUTO 0 % (0-6); Hematocrit 32.2 % (37.0-53.0); Hemoglobin 11.1 g/dL (13.5-17.5); IMMATURE GRAN ABSOLUTE AUTO 0.18 K/mm3 (0.00-0.10); IMMATURE GRAN PERCENT AUTO 1 % (0-1); LYMPHOCYTES ABSOLUTE AUTO 0.45 K/mm3 (0.84-5.20); LYMPHOCYTES PERCENT AUTO 3 % (21-46); MONOCYTES ABSOLUTE AUTO 0.27 K/mm3 (0.16-1.47); MONOCYTES PERCENT AUTO 2 % (4-13); Mean Corpuscular HGB 33.9 pg (26.0-34.0); Mean Corpuscular HGB Conc 34.5 g/dL (31.5-36.5); Mean Corpuscular Volume 99 fL (80-100); Mean Platelet Volume 10.1 fL (9.1-12.4); NEUTROPHILS ABSOLUTE AUTO 14.17 K/mm3 (1.96-9.15); NEUTROPHILS PERCENT AUTO 94 % (41-73); Platelet Count 282 K/mm3 (150-400); RDW Coefficient Variation 13.7 % (11.7-14.2); RDW Standard Deviation 49.9 fL (35.1-46.3); Red Blood Cell Count 3.27 M/mm3 (4.30-5.90)
[2022-12-15 05:03] LABS: Albumin, Blood 1.7 g/dL (3.4-5.0); Albumin/Globulin Ratio 0.4 (0.8-1.8); Bilirubin, Total 0.4 mg/dL (0.1-1.0); Bun/Creatinine Ratio 44.8 (12.0-20.0); Calcium, Blood 8.4 mg/dL (8.5-10.1); Creatinine, Blood 0.6 mg/dL (0.60-1.20); Globulin, Blood 3.8 g/dL (2.2-4.0); Potassium, Blood 3.8 mmol/L (3.5-5.5); Total Protein, Blood 5.5 g/dL (6.4-8.2)
--- NOTE | 2022-12-15 18:52 | NUR ---
No overnight events. Received report from ongoing nurse. Pt axox4. VSS are stable. Will continue to monitor.
[2022-12-16 04:59] LABS: BASOPHILS ABSOLUTE AUTO 0.01 K/mm3 (0.00-0.23); BASOPHILS PERCENT AUTO 0 % (0-2); EOSINOPHILS PERCENT AUTO 0 % (0-6); Hematocrit 31.8 % (37.0-53.0); Hemoglobin 10.8 g/dL (13.5-17.5); IMMATURE GRAN ABSOLUTE AUTO 0.14 K/mm3 (0.00-0.10); IMMATURE GRAN PERCENT AUTO 1 % (0-1); LYMPHOCYTES PERCENT AUTO 5 % (21-46); MONOCYTES ABSOLUTE AUTO 0.62 K/mm3 (0.16-1.47); MONOCYTES PERCENT AUTO 5 % (4-13); Mean Corpuscular HGB 33.8 pg (26.0-34.0); Mean Corpuscular Volume 99 fL (80-100); Mean Platelet Volume 9.7 fL (9.1-12.4); NEUTROPHILS PERCENT AUTO 89 % (41-73); Platelet Count 293 K/mm3 (150-400); RDW Coefficient Variation 13.6 % (11.7-14.2); RDW Standard Deviation 50.2 fL (35.1-46.3); White Blood Cell Count 12.77 K/mm3 (4.00-11.30)
--- NOTE | 2022-12-16 05:21 | NUR ---
PT A&O4, 15L AIRVO SATS LOW 90'S, NO COMPLIANTS OF PAIN OR DISCOMFORT THIS SHIFT, VSS, NO ACUTE OVERNIGHT EVENTS, CONTINUE POC
[2022-12-16 05:44] LABS: Bun/Creatinine Ratio 34.1 (12.0-20.0); Calcium, Blood 8.2 mg/dL (8.5-10.1); Creatinine, Blood 0.76 mg/dL (0.60-1.20); Potassium, Blood 3.9 mmol/L (3.5-5.5)
--- NOTE | 2022-12-16 08:01 | NUR ---
No overnight events. Received report from ongoing nurse. Pt axox4. VSS. Will continue to monitor.
[2022-12-17 05:03] LABS: BASOPHILS ABSOLUTE AUTO 0.01 K/mm3 (0.00-0.23); BASOPHILS PERCENT AUTO 0 % (0-2); EOSINOPHILS ABSOLUTE AUTO 0.04 K/mm3 (0.00-0.68); EOSINOPHILS PERCENT AUTO 0 % (0-6); Hematocrit 33.7 % (37.0-53.0); Hemoglobin 11.4 g/dL (13.5-17.5); IMMATURE GRAN ABSOLUTE AUTO 0.09 K/mm3 (0.00-0.10); IMMATURE GRAN PERCENT AUTO 1 % (0-1); LYMPHOCYTES ABSOLUTE AUTO 1.03 K/mm3 (0.84-5.20); LYMPHOCYTES PERCENT AUTO 10 % (21-46); MONOCYTES ABSOLUTE AUTO 0.65 K/mm3 (0.16-1.47); MONOCYTES PERCENT AUTO 7 % (4-13); Mean Corpuscular HGB 33.4 pg (26.0-34.0); Mean Corpuscular HGB Conc 33.8 g/dL (31.5-36.5); Mean Corpuscular Volume 99 fL (80-100); Mean Platelet Volume 9.6 fL (9.1-12.4); NEUTROPHILS ABSOLUTE AUTO 8.13 K/mm3 (1.96-9.15); NEUTROPHILS PERCENT AUTO 82 % (41-73); Platelet Count 313 K/mm3 (150-400); RDW Coefficient Variation 13.6 % (11.7-14.2); RDW Standard Deviation 49.7 fL (35.1-46.3); Red Blood Cell Count 3.41 M/mm3 (4.30-5.90); White Blood Cell Count 9.95 K/mm3 (4.00-11.30)
[2022-12-17 05:21] LABS: Bun/Creatinine Ratio 34.1 (12.0-20.0); Calcium, Blood 8.1 mg/dL (8.5-10.1); Creatinine, Blood 0.7 mg/dL (0.60-1.20); Potassium, Blood 3.8 mmol/L (3.5-5.5)
--- NOTE | 2022-12-17 05:22 | NUR ---
PT IS A&O4, UP WITH 1 TO BSC, 45L AIRVO SATS IN LOW 90'S THIS SHIFT, VSS, NO COMPLAINTS OF PAIN OR ACUTE OVERNIGHT EVENTS, CONTINUE POC
--- NOTE | 2022-12-17 19:14 | NUR ---
No over night events. axox4. vss. will continue to monitor.
[2022-12-18 04:37] LABS: BASOPHILS ABSOLUTE AUTO 0.01 K/mm3 (0.00-0.23); BASOPHILS PERCENT AUTO 0 % (0-2); EOSINOPHILS ABSOLUTE AUTO 0.08 K/mm3 (0.00-0.68); EOSINOPHILS PERCENT AUTO 1 % (0-6); Hematocrit 31.8 % (37.0-53.0); Hemoglobin 10.6 g/dL (13.5-17.5); IMMATURE GRAN ABSOLUTE AUTO 0.09 K/mm3 (0.00-0.10); IMMATURE GRAN PERCENT AUTO 1 % (0-1); LYMPHOCYTES ABSOLUTE AUTO 0.94 K/mm3 (0.84-5.20); LYMPHOCYTES PERCENT AUTO 12 % (21-46); MONOCYTES ABSOLUTE AUTO 0.55 K/mm3 (0.16-1.47); MONOCYTES PERCENT AUTO 7 % (4-13); Mean Corpuscular HGB 33.2 pg (26.0-34.0); Mean Corpuscular HGB Conc 33.3 g/dL (31.5-36.5); Mean Corpuscular Volume 100 fL (80-100); Mean Platelet Volume 9.6 fL (9.1-12.4); NEUTROPHILS ABSOLUTE AUTO 6.25 K/mm3 (1.96-9.15); NEUTROPHILS PERCENT AUTO 79 % (41-73); Platelet Count 272 K/mm3 (150-400); RDW Coefficient Variation 13.5 % (11.7-14.2); RDW Standard Deviation 49.3 fL (35.1-46.3); Red Blood Cell Count 3.19 M/mm3 (4.30-5.90); White Blood Cell Count 7.92 K/mm3 (4.00-11.30)
[2022-12-18 05:09] LABS: Bun/Creatinine Ratio 33.8 (12.0-20.0); Calcium, Blood 7.8 mg/dL (8.5-10.1); Creatinine, Blood 0.71 mg/dL (0.60-1.20); Potassium, Blood 4.1 mmol/L (3.5-5.5)
--- NOTE | 2022-12-18 05:50 | NUR ---
A/OX4; CURRENTLY CALM AND COOPERATIVE (ANXIOUS AT TIMES). DENIES PAIN. 1X ASSIST TO BSC /URINAL AT BEDSIDE. ON HEATED HIGH FLOW O2 AT 40L AND 42% FiO2. SATS LOW TO MID 90s. EXP WHEEZE NAYA. IV ABX PER ORDERS. SLEEP PROMOTED. CALL LIGHT IN REACH; ENCOURAGED TO MAKE NEEDS KNOWN. BED ALARM SET
--- NOTE | 2022-12-18 18:00 | NUR ---
Received report from ongoing nurse. Pt axox4. VSS stable. Will continue to monitor.
--- NOTE | 2022-12-19 06:14 | NUR ---
TONYA SLEPT WELL THROUGH THE NIGHT. 02 SATURATION REMAINED ABOVE 92% ON 8L HIGH FLOW NC. CALLS APPROPRIATLY FOR ASSISTANCE TO THE BATHROOM AND HAS HAD NO COMPLAINTS OF DISCOMFORT ALL NIGHT.
[2022-12-19 07:36] LABS: BASOPHILS ABSOLUTE AUTO 0.01 K/mm3 (0.00-0.23); BASOPHILS PERCENT AUTO 0 % (0-2); EOSINOPHILS ABSOLUTE AUTO 0.11 K/mm3 (0.00-0.68); EOSINOPHILS PERCENT AUTO 1 % (0-6); Hematocrit 34.2 % (37.0-53.0); Hemoglobin 11.2 g/dL (13.5-17.5); IMMATURE GRAN PERCENT AUTO 1 % (0-1); LYMPHOCYTES ABSOLUTE AUTO 1.23 K/mm3 (0.84-5.20); LYMPHOCYTES PERCENT AUTO 14 % (21-46); MONOCYTES PERCENT AUTO 7 % (4-13); Mean Corpuscular HGB 33.2 pg (26.0-34.0); Mean Corpuscular HGB Conc 32.7 g/dL (31.5-36.5); Mean Corpuscular Volume 102 fL (80-100); Mean Platelet Volume 9.6 fL (9.1-12.4); NEUTROPHILS ABSOLUTE AUTO 6.97 K/mm3 (1.96-9.15); NEUTROPHILS PERCENT AUTO 77 % (41-73); Platelet Count 301 K/mm3 (150-400); RDW Coefficient Variation 13.4 % (11.7-14.2); Red Blood Cell Count 3.37 M/mm3 (4.30-5.90); White Blood Cell Count 9.02 K/mm3 (4.00-11.30)
[2022-12-19 07:59] LABS: Bun/Creatinine Ratio 23.5 (12.0-20.0); Calcium, Blood 8.1 mg/dL (8.5-10.1); Creatinine, Blood 0.77 mg/dL (0.60-1.20); Potassium, Blood 3.9 mmol/L (3.5-5.5)
--- NOTE | 2022-12-19 18:34 | NUR ---
Received report from ongoing nurse. Pt resting comfortably in bed. Pt axox4. VSS. Will continue to monitor.
--- NOTE | 2022-12-20 04:38 | NUR ---
PT IS A&O4, SB TO THE BR, ON 3L NC TOLERATING WELL WITH SATS IN THE UPPER 90'S OVERNIGHT, VSS, NO COMPLAINTS OF PAIN OR DISCOMFORT THIS SHIFT, CONTINUE POC
[2022-12-20 07:01] LABS: BASOPHILS PERCENT AUTO 0 % (0-2); EOSINOPHILS ABSOLUTE AUTO 0.09 K/mm3 (0.00-0.68); EOSINOPHILS PERCENT AUTO 1 % (0-6); Hematocrit 31.7 % (37.0-53.0); Hemoglobin 10.5 g/dL (13.5-17.5); IMMATURE GRAN ABSOLUTE AUTO 0.07 K/mm3 (0.00-0.10); IMMATURE GRAN PERCENT AUTO 1 % (0-1); LYMPHOCYTES PERCENT AUTO 13 % (21-46); MONOCYTES ABSOLUTE AUTO 0.69 K/mm3 (0.16-1.47); MONOCYTES PERCENT AUTO 7 % (4-13); Mean Corpuscular HGB 33.5 pg (26.0-34.0); Mean Corpuscular HGB Conc 33.1 g/dL (31.5-36.5); Mean Corpuscular Volume 101 fL (80-100); Mean Platelet Volume 9.4 fL (9.1-12.4); NEUTROPHILS ABSOLUTE AUTO 7.27 K/mm3 (1.96-9.15); NEUTROPHILS PERCENT AUTO 78 % (41-73); Platelet Count 281 K/mm3 (150-400); RDW Coefficient Variation 13.4 % (11.7-14.2); RDW Standard Deviation 49.8 fL (35.1-46.3); Red Blood Cell Count 3.13 M/mm3 (4.30-5.90); White Blood Cell Count 9.32 K/mm3 (4.00-11.30)
[2022-12-20 07:25] LABS: Bun/Creatinine Ratio 24.9 (12.0-20.0); Calcium, Blood 8.2 mg/dL (8.5-10.1); Creatinine, Blood 0.8 mg/dL (0.60-1.20); Potassium, Blood 4.3 mmol/L (3.5-5.5)
[2022-12-20] MEDS ORDERED: BUSP10 PO (15:36)
[2022-12-20] MEDS ORDERED: FLUTICASONE-SA1 EAC1 INH (15:36)
[2022-12-20] MEDS ORDERED: GUAI600T33 PO (15:37)
[2022-12-20] MEDS ORDERED: Nicoderm Cq1 EAC1 TOP (15:38)
[2022-12-20] MEDS ORDERED: PRED20 PO (15:38)
[2022-12-20] MEDS ORDERED: QUET25 PO (15:39)
[2022-12-20] MEDS ORDERED: SPIRIVA RESPIMAT4 G3 INH (15:40)
--- NOTE | 2022-12-20 16:59 | NUR ---
Received report from ongoing nurse. Pt axox4. VSS stable Home [address] Discharge orders in place. Pt discharge with home 02 and high flow tubing. at bedside. Pt has all belongings with him. IV removed.
== END 2022-12-20 17:55 | disposition home health service (06) | DRG 871 ==
LOC: ER 11:48 → MEDS 13:18
PROVIDERS: Emergency Medicine; Internal Medicine; ADMIT Internal Medicine
PROC: 3E03329 Introduction of Other Anti-infective into Peripheral Vein, Percutaneous Approach (ICD-10-PCS; principal; 2022-12-10)
PROC: 5A09357 Assistance with Respiratory Ventilation, Less than 24 Consecutive Hours, Continuous Positive Airway Pressure (ICD-10-PCS; 2022-12-10)
PROC: 5A0945A Assistance with Respiratory Ventilation, 24-96 Consecutive Hours, High Flow/Velocity Cannula (ICD-10-PCS; 2022-12-11)
DX: A41.9 Sepsis, unspecified organism (principal); J18.9 Pneumonia, unspecified organism; J96.21 Acute and chronic respiratory failure with hypoxia; J44.0 Chronic obstructive pulmonary disease with (acute) lower respiratory infection; R64 Cachexia; N17.9 Acute kidney failure, unspecified; E87.1 Hypo-osmolality and hyponatremia; E46 Unspecified protein-calorie malnutrition; Z68.1 Body mass index [BMI] 19.9 or less, adult; R65.20 Severe sepsis without septic shock; Z66 Do not resuscitate; I25.10 Atherosclerotic heart disease of native coronary artery without angina pectoris; G47.33 Obstructive sleep apnea (adult) (pediatric); R13.12 Dysphagia, oropharyngeal phase; F32.A Depression, unspecified; G89.4 Chronic pain syndrome; I73.9 Peripheral vascular disease, unspecified; E87.6 Hypokalemia; F17.210 Nicotine dependence, cigarettes, uncomplicated; N28.9 Disorder of kidney and ureter, unspecified; G47.00 Insomnia, unspecified; Z20.822 Contact with and (suspected) exposure to COVID-19; Z71.6 Tobacco abuse counseling; Z85.828 Personal history of other malignant neoplasm of skin; Z95.2 Presence of prosthetic heart valve; Z95.1 Presence of aortocoronary bypass graft; Z92.3 Personal history of irradiation; Z98.890 Other specified postprocedural states; Z88.5 Allergy status to narcotic agent; Z79.899 Other long term (current) drug therapy; Z79.82 Long term (current) use of aspirin; Z79.02 Long term (current) use of antithrombotics/antiplatelets; Z79.891 Long term (current) use of opiate analgesic; Z79.52 Long term (current) use of systemic steroids; Z85.819 Personal history of malignant neoplasm of unspecified site of lip, oral cavity, and pharynx; Z90.49 Acquired absence of other specified parts of digestive tract; Z99.81 Dependence on supplemental oxygen; Z79.51 Long term (current) use of inhaled steroids
CPT/HCPCS: 0241U; 36415; 71045; 80048; 80053; 80202; 82803; 83605; 83735; 83880; 84145; 84484; 85025; 87040; 94640; 94644; 94664; 94761; 94762; 96361; 96365; 96367; 96375; 98960; 99285-25; A9270; J0456; J0692; J0696; J1650; J2920; J2930; J3370; J7030; J7040; J7050; J7512

== ENCOUNTER → 2023-01-01 | Outpatient (CLI) | payer MEDICARE, BC ==
[~2023-01-01] MED LIST changes: +BUSP10 PO; +CARBIDOPA-LEVO1 EAC9 PO; +FLUTICASONE-SA1 EAC1 INH; +GUAI600T33 PO; +Nicoderm Cq1 EAC1 TOP; +PRED20 PO; +QUET25 PO; +SPIRIVA RESPIMAT4 G3 INH
[2023-01-01 13:24] LABS: U Amphetamine Screen Not Detected; U Barbituate Screen Not Detected; U Benzodiazapine Screen Not Detected; U Buprenorphine Screen Not Detected; U Cannabinoids Screen Not Detected; U Cocaine Screen Not Detected; U Methadone Screen Not Detected; U Methamphetamine Screen Not Detected; U Opiates Screen DETECTED; U Oxycodone Screen Not Detected; U Phencyclidine Screen Not Detected; U Propoxyphene Screen Not Detected
== END | disposition home or self-care (01) ==
LOC: LAB SHORT 10:40
PROVIDERS: Internal Medicine Hematology & Oncology
DX: Z51.81 Encounter for therapeutic drug level monitoring (principal); Z79.899 Other long term (current) drug therapy

== ENCOUNTER → 2023-01-30 | Outpatient (CLI) | payer MEDICARE, BC ==
[2023-01-30 13:47] LABS: U Amphetamine Screen Not Detected; U Barbituate Screen Not Detected; U Benzodiazapine Screen Not Detected; U Buprenorphine Screen Not Detected; U Cannabinoids Screen Not Detected; U Cocaine Screen Not Detected; U Methadone Screen Not Detected; U Methamphetamine Screen Not Detected; U Opiates Screen DETECTED; U Oxycodone Screen Not Detected; U Phencyclidine Screen Not Detected; U Propoxyphene Screen Not Detected
== END | disposition home or self-care (01) ==
LOC: LAB 10:31 → LAB SHORT 10:31
PROVIDERS: Internal Medicine Hematology & Oncology
DX: Z51.81 Encounter for therapeutic drug level monitoring (principal); Z79.899 Other long term (current) drug therapy

== ENCOUNTER → 2023-04-11 | Outpatient (CLI) | payer MEDICARE, BC ==
[2023-04-11 13:49] LABS: U Amphetamine Screen Not Detected; U Barbituate Screen Not Detected; U Benzodiazapine Screen Not Detected; U Buprenorphine Screen Not Detected; U Cannabinoids Screen Not Detected; U Cocaine Screen Not Detected; U Methadone Screen Not Detected; U Methamphetamine Screen Not Detected; U Opiates Screen DETECTED; U Oxycodone Screen Not Detected; U Phencyclidine Screen Not Detected; U Propoxyphene Screen Not Detected
== END | disposition home or self-care (01) ==
LOC: LAB SHORT 11:45 → LAB 11:45
PROVIDERS: Internal Medicine Hematology & Oncology
DX: Z51.81 Encounter for therapeutic drug level monitoring (principal); Z79.899 Other long term (current) drug therapy

== ENCOUNTER → 2023-05-14 | Outpatient (CLI) | payer MEDICARE, BC | END | disposition home or self-care (01) | LOC: LAB SHORT 11:17 → PLD 11:17 | DX: D48.5 Neoplasm of uncertain behavior of skin (principal) | CPT/HCPCS: 88305 ==

== ENCOUNTER → 2023-05-24 | Outpatient (CLI) | payer MEDICARE, BC | END | disposition home or self-care (01) | LOC: PLD 14:57 → LAB SHORT 14:57 | DX: C44.529 Squamous cell carcinoma of skin of other part of trunk (principal) | CPT/HCPCS: 88305 ==

== ENCOUNTER → 2023-05-31 | Outpatient (CLI) | payer MEDICARE, BC ==
[~2023-05-31] MED LIST changes: +ASPIR 8181 M1 PO; -Aspir-Trin325 MG PO; +Norco 10-325 T1 EACH PO; -Norco 7.5-3251 EACH PO; +REMERON1510 PO; +STALEVO PO
[2023-05-31 15:06] LABS: U Amphetamine Screen Not Detected; U Barbituate Screen Not Detected; U Benzodiazapine Screen Not Detected; U Buprenorphine Screen Not Detected; U Cannabinoids Screen Not Detected; U Cocaine Screen Not Detected; U Methadone Screen Not Detected; U Methamphetamine Screen Not Detected; U Opiates Screen DETECTED; U Oxycodone Screen Not Detected; U Phencyclidine Screen Not Detected; U Propoxyphene Screen Not Detected
== END | disposition home or self-care (01) ==
LOC: LAB SHORT 13:17 → LAB 13:17
PROVIDERS: Internal Medicine Hematology & Oncology
DX: Z51.81 Encounter for therapeutic drug level monitoring (principal); Z79.899 Other long term (current) drug therapy
CPT/HCPCS: G0480

== ENCOUNTER 2023-06-14 16:54 | Inpatient (IN) | payer MEDICARE, BC ==
[~2023-06-14] VITALS: Ht 165.1 cm; Wt 54.4 kg
[~2023-06-14 16:54] MED LIST changes: -AZIT250 PO; -CEFP200 PO; -Prednisone10 MG PO; -REMERON1510 PO; -STALEVO PO; -VISBIOME 112.51 EACH PO
[2023-06-15 03:17] LABS: Hematocrit 32.2 % (37.0-53.0); Hemoglobin 10.7 g/dL (13.5-17.5); Mean Corpuscular HGB 32.5 pg (26.0-34.0); Mean Corpuscular HGB Conc 33.2 g/dL (31.5-36.5); Mean Corpuscular Volume 98 fL (80-100); Mean Platelet Volume 9.4 fL (9.1-12.4); Platelet Count 171 K/mm3 (150-400); RDW Coefficient Variation 12.6 % (11.7-14.2); RDW Standard Deviation 45.4 fL (35.1-46.3); Red Blood Cell Count 3.29 M/mm3 (4.30-5.90); White Blood Cell Count 6.84 K/mm3 (4.00-11.30)
[2023-06-15 03:21] VITALS: BP 110/58
[2023-06-15 03:43] LABS: BAND PERCENT MAN 28 % (0-8); BASOPHILS ABSOLUTE MAN 0.13 K/mm3 (0.00-0.23); BASOPHILS PERCENT MAN 2 % (0-2); EOSINOPHILS ABSOLUTE MAN 0.06 K/mm3 (0.00-0.68); EOSINOPHILS PERCENT MAN 1 % (0-6); LYMPHOCYTES ABSOLUTE MAN 0.68 K/mm3 (0.84-5.20); LYMPHOCYTES PERCENT MAN 10 % (21-46); METAMYELOCYTE ABSOLUTE MAN 0.13 K/mm3 (0.00-0.00); METAMYELOCYTE PERCENT MAN 2 % (0-0); MONOCYTES ABSOLUTE MAN 0.95 K/mm3 (0.16-1.47); MONOCYTES PERCENT MAN 14 % (4-13); MYELOCYTE ABSOLUTE MAN 0.06 K/mm3 (0.00-0.00); MYELOCYTE PERCENT MAN 1 % (0-0); NEUTROPHILS ABSOLUTE MAN 4.78 K/mm3 (1.96-9.15); SEG NEUTROPHILS PERCENT MAN 42 % (41-73); TOTAL CELLS COUNTED 100
[2023-06-15 03:51] LABS: Albumin, Blood 2.2 g/dL (3.4-5.0); Albumin/Globulin Ratio 0.6 (0.8-1.8); Bilirubin, Total 0.3 mg/dL (0.1-1.0); Bun/Creatinine Ratio 14.3 (12.0-20.0); Calcium, Blood 8.1 mg/dL (8.5-10.1); Creatinine, Blood 0.84 mg/dL (0.60-1.20); Globulin, Blood 3.8 g/dL (2.2-4.0); Potassium, Blood 4.5 mmol/L (3.5-5.5)
--- NOTE | 2023-06-15 05:20 | NUR ---
SHIFT SUMMARY NEW PATIENT ARRIVED TO UNIT FROM ED AT 03:18. IS A/Ox4, PLEASANT, COOPERATIVE. DENIES PAIN NOR DISCOMFORT. INTERMITTANT PRODUCTIVE COUGH. SPO2 MAINTAINING AT LOW 90s ON 2-3L NC. QUICKLY DESATS TO MID 80's WHILE COUGHING, QUICK RECOVERY. PATIENT STATES Hx OF COPD AND THAT THIS IS THE SECOND TIME BEING HERE FOR PNEUMONIA, LAST HERE IN NOVEMBER. DENIES SOB NOR DIFFICULTY BREATHING. SBA FOR TRANSFERS, INDEPENDANT WITH BED MOBILITY. EDUCATED ON FIRE SAFETY AND RISK OF INJURY R/T OXYGEN USE, PATIENT VERBALIZED UNDERSTANDING, DENIES ACCESS TO ANY SOURCES OF IGNITION. NO ACUTE CHANGES OVERNIGHT, BED LOW, CALL LIGHT WITHIN REACH.
[2023-06-15 07:21] VITALS: BP 100/57
[2023-06-15 17:50] VITALS: BP 101/61
--- NOTE | 2023-06-15 19:02 | NUR ---
SHIFT SUMMARY: PT A/O X 4, STANDBY ASSIST. PLEASANT AND COOPERATIVE. PT CONTINUES TO HAVE WET PRODUCTIVE COUGH. PT ON 3.5 LPM VIA NC. BASELINE IS 3 LPM PRN. PT HAD NO FURTHER CONCERNS.
--- NOTE | 2023-06-15 19:53 | NUR ---
NO SIGNS OF USING IGNITION SOURCES WHILE ROUNDING.
[2023-06-15 20:53] VITALS: BP 114/59
--- NOTE | 2023-06-15 23:57 | NUR ---
PT EDUCATED ON [facility] FIRE SAFETY IGNITION/EXPLOSIVE SOURCES NON SMOKING POLICY AND VERBALIZED UNDERSTANDING.
[2023-06-16 03:07] VITALS: BP 109/62
--- NOTE | 2023-06-16 03:14 | NUR ---
SHIFT SUMMARY NOC PT A/O X 4. PLEASANT AND COOPERATIVE WITH CARE. ON 3.5L/NC O2 SPO2 > 94%. PT RECEIVING PO AZITHROMYCIN AND ROCEPHIN FOR LLL PNA. PT IS RECEIVING NS INFUSING @ 50 ML/HR. PT SCHEDULED TO STAY IN HOSPITAL UNTIL SUNDAY WHEN PT SHOULD DISCHARGE HOME WHERE HE LIVES WITH . PT IS CURRENTLY RESTING WITH BED IN LOWEST POSITION, AND CALL LIGHT WITHIN REACH.
[2023-06-16] MEDS ORDERED: BUSP10 PO (04:24)
[2023-06-16] MEDS ORDERED: STALEVO PO (04:25)
[2023-06-16] MEDS ORDERED: QUET25 PO (04:26)
[2023-06-16] MEDS ORDERED: REMERON1510 PO (04:27)
[2023-06-16 05:25] LABS: Hematocrit 33.5 % (37.0-53.0); Hemoglobin 11.1 g/dL (13.5-17.5); Mean Corpuscular HGB 32.4 pg (26.0-34.0); Mean Corpuscular HGB Conc 33.1 g/dL (31.5-36.5); Mean Corpuscular Volume 98 fL (80-100); Mean Platelet Volume 9.9 fL (9.1-12.4); Platelet Count 204 K/mm3 (150-400); RDW Coefficient Variation 12.6 % (11.7-14.2); RDW Standard Deviation 45.2 fL (35.1-46.3); Red Blood Cell Count 3.43 M/mm3 (4.30-5.90); White Blood Cell Count 5.71 K/mm3 (4.00-11.30)
[2023-06-16 05:45] LABS: BAND PERCENT MAN 23 % (0-8); BASOPHILS PERCENT MAN 0 % (0-2); EOSINOPHILS PERCENT MAN 0 % (0-6); LYMPHOCYTES ABSOLUTE MAN 0.79 K/mm3 (0.84-5.20); LYMPHOCYTES PERCENT MAN 14 % (21-46); METAMYELOCYTE ABSOLUTE MAN 0.17 K/mm3 (0.00-0.00); METAMYELOCYTE PERCENT MAN 3 % (0-0); MONOCYTES ABSOLUTE MAN 0.22 K/mm3 (0.16-1.47); MONOCYTES PERCENT MAN 4 % (4-13); NEUTROPHILS ABSOLUTE MAN 4.51 K/mm3 (1.96-9.15); SEG NEUTROPHILS PERCENT MAN 56 % (41-73); TOTAL CELLS COUNTED 100
[2023-06-16 05:59] LABS: Albumin, Blood 2.1 g/dL (3.4-5.0); Albumin/Globulin Ratio 0.5 (0.8-1.8); Bilirubin, Total 0.4 mg/dL (0.1-1.0); Bun/Creatinine Ratio 17.5 (12.0-20.0); Calcium, Blood 8.5 mg/dL (8.5-10.1); Creatinine, Blood 0.8 mg/dL (0.60-1.20); Globulin, Blood 4.1 g/dL (2.2-4.0); Phosphorus, Blood 1.8 mg/dL (2.5-4.9); Potassium, Blood 4.5 mmol/L (3.5-5.5); Total Protein, Blood 6.2 g/dL (6.4-8.2)
[2023-06-16 07:19] VITALS: BP 122/61
[2023-06-16 15:11] VITALS: BP 106/70
--- NOTE | 2023-06-16 18:03 | NUR ---
SHIFT SUMMARY PT A&OX4 AND PLEASANT. INDEPENDENT IN ROOM. DENIES PAIN OR SOB. SATING AT 97% ON 3.5L OF OXYGEN. PT REPORTS SPUTUM BECOMING LESS YELLOW AND MORE CLEAR. VSS FAMILY AT BEDSIDE IN AFTERNOON. PT REMINDED OF POSSIBLE SOURCES OF IGNITION AND NO SMOKING POLICY. BED IN LOWEST POSITION AND CALL LIGHT IN REACH.
[2023-06-16 20:06] VITALS: BP 121/70
--- NOTE | 2023-06-16 23:55 | NUR ---
PT EDUCATED ON [facility] FIRE SAFETY IGNITION/EXPLOSIVE SOURCES NON SMOKING POLICY AND VERBALIZED UNDERSTANDING.
--- NOTE | 2023-06-17 02:37 | NUR ---
SHIFT SUMMARY NOC PT A/O X 4. PLEASANT AND COOPERATIVE WITH CARE. NO ACUTE CHANGES TO REPORT. PT SOLU MEDROL SCHEDULE CHANGED IN PREPARATION FOR CHANGE TO PO PREDNISONE FOR DISCHARGE HOME SUNDAY. STILL RECEIVING ABX FOR PNA. PT IS CURRENTLY RESTING WITH BED IN LOWEST POSITION, AND CALL LIGHT WITHIN REACH.
[2023-06-17 05:31] VITALS: BP 106/59
[2023-06-17 07:22] VITALS: BP 116/66
[2023-06-17] MEDS ORDERED: AZIT250 PO (10:40)
[2023-06-17] MEDS ORDERED: CEFP200 PO (10:46)
[2023-06-17] MEDS ORDERED: VISBIOME 112.51 EACH PO (10:46)
[2023-06-17] MEDS ORDERED: Prednisone10 MG PO (10:47)
--- NOTE | 2023-06-17 12:01 | NUR ---
PT DISCHARGED HOME. DC INSTRUCTIONS AND EDUCATION MATERIAL EXPLAINED TO PT AND . NO NEW QUESTIONS OR CONCERNS. PERSCRIPTIONS FAXED TO [facility] PER PT REQUEST. DR DE LUNA NOTIFIED THAT [facility] IS NOT OPEN ON SUNDAY. STATED THAT SINCE PT ALREADY RECIEVED ZITHROMAX AND ROCEPHIN THIS MORNING, HE WAS OK TO WEATHER REPORTER PERSCRIPTIONS TOMORROW. PT WAS INFORMED OF 'S INSTRUCTIONS. IV DC'D. ALL BELONGINGS SENT HOME WITH PT. PT TAKEN BY WHEELCHAIR TO WAITING VEHICLE.
== END 2023-06-17 11:48 | disposition home or self-care (01) | DRG 871 ==
LOC: ER 16:54 → MEDS 06-15 00:24 → ENPENDDIS 06-17 09:58 → MEDS 06-17 11:48
PROVIDERS: Hospitalist; Student in an Organized Health Care Education/Training Program; ADMIT Internal Medicine
DX: A41.9 Sepsis, unspecified organism (principal); J18.9 Pneumonia, unspecified organism; J96.21 Acute and chronic respiratory failure with hypoxia; N17.9 Acute kidney failure, unspecified; J98.11 Atelectasis; J44.1 Chronic obstructive pulmonary disease with (acute) exacerbation; J44.0 Chronic obstructive pulmonary disease with (acute) lower respiratory infection; J90 Pleural effusion, not elsewhere classified; Z66 Do not resuscitate; F17.210 Nicotine dependence, cigarettes, uncomplicated; G89.4 Chronic pain syndrome; I73.9 Peripheral vascular disease, unspecified; M25.559 Pain in unspecified hip; M25.579 Pain in unspecified ankle and joints of unspecified foot; F32.9 Major depressive disorder, single episode, unspecified; M79.606 Pain in leg, unspecified; B96.89 Other specified bacterial agents as the cause of diseases classified elsewhere; Z79.899 Other long term (current) drug therapy; Z79.51 Long term (current) use of inhaled steroids; Z95.828 Presence of other vascular implants and grafts; Z85.819 Personal history of malignant neoplasm of unspecified site of lip, oral cavity, and pharynx; Z79.52 Long term (current) use of systemic steroids; Z79.82 Long term (current) use of aspirin; Z88.5 Allergy status to narcotic agent; Z79.891 Long term (current) use of opiate analgesic; Z90.49 Acquired absence of other specified parts of digestive tract; Z95.2 Presence of prosthetic heart valve; Z95.1 Presence of aortocoronary bypass graft; Z98.890 Other specified postprocedural states
CPT/HCPCS: 36415; 71260; 80053; 83605; 83735; 84100; 84484; 85025; 85379; 87070; 87205; 93005; 93010; 94640; 94664; 94760; 94762; 96365-59; 96368; 99285-25; A9270; J0456; J0696; J2930; J7030; J7050; J7512; Q9967

== ENCOUNTER → 2023-06-14 | Outpatient (CLI) | payer MEDICARE, BC ==
[~2023-06-14] MED LIST changes: +AZIT250 PO; +CEFP200 PO; +Prednisone10 MG PO; +VISBIOME 112.51 EACH PO
[2023-06-14 16:03] LABS: Hematocrit 38.7 % (37.0-53.0); Hemoglobin 13.1 g/dL (13.5-17.5); Mean Corpuscular HGB 32.9 pg (26.0-34.0); Mean Corpuscular HGB Conc 33.9 g/dL (31.5-36.5); Mean Corpuscular Volume 97 fL (80-100); Mean Platelet Volume 9.6 fL (9.1-12.4); Platelet Count 201 K/mm3 (150-400); RDW Coefficient Variation 12.5 % (11.7-14.2); RDW Standard Deviation 45.1 fL (35.1-46.3); Red Blood Cell Count 3.98 M/mm3 (4.30-5.90); White Blood Cell Count 4.66 K/mm3 (4.00-11.30)
[2023-06-14 16:08] LABS: Albumin/Globulin Ratio 0.6 (0.8-1.8); Bilirubin, Total 0.6 mg/dL (0.1-1.0); Bun/Creatinine Ratio 12.1 (12.0-20.0); Calcium, Blood 9.8 mg/dL (8.5-10.1); Creatinine, Blood 1.32 mg/dL (0.60-1.20); Globulin, Blood 5.1 g/dL (2.2-4.0); Potassium, Blood 4.4 mmol/L (3.5-5.5); Total Protein, Blood 8.1 g/dL (6.4-8.2)
[2023-06-14 16:39] LABS: BAND PERCENT MAN 32 % (0-8); BASOPHILS PERCENT MAN 0 % (0-2); EOSINOPHILS PERCENT MAN 0 % (0-6); LYMPHOCYTES ABSOLUTE MAN 0.65 K/mm3 (0.84-5.20); LYMPHOCYTES PERCENT MAN 14 % (21-46); MONOCYTES ABSOLUTE MAN 0.46 K/mm3 (0.16-1.47); MONOCYTES PERCENT MAN 10 % (4-13); NEUTROPHILS ABSOLUTE MAN 3.54 K/mm3 (1.96-9.15); SEG NEUTROPHILS PERCENT MAN 44 % (41-73); TOTAL CELLS COUNTED 100
== END | disposition home or self-care (01) ==
LOC: LAB SHORT 15:51 → LAB 15:51
PROVIDERS: Emergency Medicine
DX: R00.0 Tachycardia, unspecified (principal)
CPT/HCPCS: 80053; 84484; 85025

== ENCOUNTER → 2023-08-30 | Outpatient (CLI) | payer MEDICARE, BC ==
[~2023-08-30] MED LIST changes: +AZIT250 PO; +CEFP200 PO; +Prednisone10 MG PO; +REMERON1510 PO; +STALEVO PO; +VISBIOME 112.51 EACH PO
[2023-08-30 15:17] LABS: U Amphetamine Screen Not Detected; U Barbituate Screen Not Detected; U Benzodiazapine Screen Not Detected; U Cocaine Screen Not Detected; U Methadone Screen Not Detected; U Methamphetamine Screen Not Detected; U Opiates Screen DETECTED
[2023-08-30 15:18] LABS: U Buprenorphine Screen Not Detected; U Cannabinoids Screen Not Detected; U Oxycodone Screen Not Detected; U Phencyclidine Screen Not Detected; U Propoxyphene Screen Not Detected
== END ==
LOC: LAB SHORT 13:11 → LAB 13:11
PROVIDERS: Internal Medicine Hematology & Oncology
DX: Z51.81 Encounter for therapeutic drug level monitoring (principal); Z79.899 Other long term (current) drug therapy
CPT/HCPCS: G0480

== ENCOUNTER → 2023-10-30 | Outpatient (CLI) | payer MEDICARE, BC ==
[~2023-10-30] MED LIST changes: +CEPH500 PO; +HYDROCODONE-AC1 EAC7 PO; +PRAVASTATIN SOD20 MG PO
[2023-10-30 14:41] LABS: U Amphetamine Screen Not Detected; U Barbituate Screen Not Detected; U Benzodiazapine Screen Not Detected; U Buprenorphine Screen Not Detected; U Cannabinoids Screen Not Detected; U Cocaine Screen Not Detected; U Methadone Screen Not Detected; U Methamphetamine Screen Not Detected; U Opiates Screen DETECTED; U Oxycodone Screen Not Detected; U Phencyclidine Screen Not Detected
== END | disposition home or self-care (01) ==
LOC: LAB 13:08 → LAB SHORT 13:08
PROVIDERS: Internal Medicine Hematology & Oncology
DX: C04.9 Malignant neoplasm of floor of mouth, unspecified (principal); G89.4 Chronic pain syndrome; Z79.899 Other long term (current) drug therapy

== ENCOUNTER 2023-11-22 19:37 | Emergency (ER) | payer MEDICARE, BC ==
[~2023-11-22] VITALS: Ht 165.1 cm; Wt 50.8 kg
[~2023-11-22 19:37] MED LIST changes: -CEPH500 PO; -HYDROCODONE-AC1 EAC7 PO; -PRAVASTATIN SOD20 MG PO
[2023-11-22 20:09] LABS: Hemoglobin 12.2 g/dL (13.5-17.5); Mean Corpuscular HGB 33.1 pg (26.0-34.0); Mean Corpuscular Volume 100 fL (80-100); Mean Platelet Volume 9.6 fL (9.1-12.4); Platelet Count 204 K/mm3 (150-400); RDW Coefficient Variation 11.9 % (11.7-14.2); RDW Standard Deviation 44.1 fL (35.1-46.3); Red Blood Cell Count 3.69 M/mm3 (4.30-5.90); White Blood Cell Count 5.95 K/mm3 (4.00-11.30)
[2023-11-22 20:28] LABS: Albumin, Blood 2.9 g/dL (3.4-5.0); Albumin/Globulin Ratio 0.6 (0.8-1.8); Bilirubin, Total 0.8 mg/dL (0.1-1.0); Bun/Creatinine Ratio 14.8 (12.0-20.0); Calcium, Blood 9.6 mg/dL (8.5-10.1); Creatinine, Blood 0.81 mg/dL (0.60-1.20); Globulin, Blood 4.9 g/dL (2.2-4.0); Potassium, Blood 3.9 mmol/L (3.5-5.5); Total Protein, Blood 7.8 g/dL (6.4-8.2)
[2023-11-22 20:55] LABS: BAND PERCENT MAN 27 % (0-8); BASOPHILS ABSOLUTE MAN 0.05 K/mm3 (0.00-0.23); BASOPHILS PERCENT MAN 1 % (0-2); EOSINOPHILS PERCENT MAN 0 % (0-6); LYMPHOCYTES ABSOLUTE MAN 1.07 K/mm3 (0.84-5.20); LYMPHOCYTES PERCENT MAN 18 % (21-46); METAMYELOCYTE ABSOLUTE MAN 0.05 K/mm3 (0.00-0.00); METAMYELOCYTE PERCENT MAN 1 % (0-0); MONOCYTES ABSOLUTE MAN 0.83 K/mm3 (0.16-1.47); MONOCYTES PERCENT MAN 14 % (4-13); NEUTROPHILS ABSOLUTE MAN 3.92 K/mm3 (1.96-9.15); SEG NEUTROPHILS PERCENT MAN 39 % (41-73); TOTAL CELLS COUNTED 100
[2023-11-23 00:10] LABS: PCO2 Venous 71.8 mmHg (38-42); pH Blood Venous 7.32 (7.34-7.37)
[2023-11-23 00:30] LABS: International Normalized Ratio 0.99; Prothrombin Time Results 10.4 Sec (9.7-11.5)
[2023-11-23 00:36] LABS: Thyroid Stimulating Hormone 1.36 uIU/mL (0.360-4.800)
[2023-11-23 01:00] LABS: Source, Urine Clean Catch
[2023-11-23 01:06] LABS: Bilirubin, Urine Neg (Neg); Blood, Urine 1+ (Neg); Glucose Qualitative, Urine Neg (Neg); Ketones, Urine Neg (Neg); Leukocyte Esterase, Urine 1+ (Neg); Nitrite, Urine Neg (Neg); Protein, Urine 2+ (Neg); Urobilinogen, Urine 3+ (Normal)
[2023-11-23 01:33] LABS: Appearance, Urine Clear (Clear); Color, Urine Yellow (P-Yellow)
[2023-11-23 01:47] LABS: Bacteria Mod /hpf; Red Blood Cells, Urine 0-2 /hpf (0-2); Squamous Epithelial Cells Few /hpf (Few); White Blood Cells, Urine 0-2 /hpf (0-5)
[2023-11-23] MEDS ORDERED: PRAVASTATIN SOD20 MG PO (04:33)
[2023-11-23] MEDS ORDERED: HYDROCODONE-AC1 EAC7 PO (04:34)
[2023-11-23 06:00] VITALS: BP 105/61
[2023-11-23] MEDS ORDERED: CEPH500 PO (06:01)
== END 2023-11-23 06:15 | disposition home or self-care (01) ==
LOC: ER 19:37
PROVIDERS: Emergency Medicine; Physician Assistant
DX: J44.1 Chronic obstructive pulmonary disease with (acute) exacerbation (principal); E86.0 Dehydration; N39.0 Urinary tract infection, site not specified; J90 Pleural effusion, not elsewhere classified; E83.39 Other disorders of phosphorus metabolism; F17.210 Nicotine dependence, cigarettes, uncomplicated; Z79.51 Long term (current) use of inhaled steroids; Z79.52 Long term (current) use of systemic steroids; Z79.2 Long term (current) use of antibiotics; Z79.82 Long term (current) use of aspirin; Z79.899 Other long term (current) drug therapy; Z88.5 Allergy status to narcotic agent
CPT/HCPCS: 36415; 71046; 71260; 80053; 81001; 82803; 83605; 83735; 83880; 84100; 84145; 84443; 84484; 85025; 85610; 85730; 87040; 87086; 93005; 93010; 94640; 94664; 99285-25; A9270; J0696; J7030; Q9967

== ENCOUNTER → 2024-01-01 | Outpatient (CLI) | payer MEDICARE, BC ==
[~2024-01-01] MED LIST changes: +CEPH500 PO; +HYDROCODONE-AC1 EAC7 PO; +PRAVASTATIN SOD20 MG PO
[2024-01-01 13:19] LABS: U Amphetamine Screen Not Detected; U Barbituate Screen Not Detected; U Benzodiazapine Screen Not Detected; U Buprenorphine Screen Not Detected; U Cannabinoids Screen Not Detected; U Cocaine Screen Not Detected; U Methadone Screen Not Detected; U Methamphetamine Screen Not Detected; U Opiates Screen DETECTED; U Oxycodone Screen Not Detected; U Phencyclidine Screen Not Detected
== END | disposition home or self-care (01) ==
LOC: LAB SHORT 11:07 → LAB 11:07
PROVIDERS: Internal Medicine Hematology & Oncology
DX: C04.9 Malignant neoplasm of floor of mouth, unspecified (principal); G89.4 Chronic pain syndrome; Z79.899 Other long term (current) drug therapy

== ENCOUNTER → 2024-02-29 | Outpatient (CLI) | payer MEDICARE, BC ==
[2024-03-03 17:29] LABS: U Amphetamine Screen Not Detected; U Barbituate Screen Not Detected; U Benzodiazapine Screen Not Detected; U Buprenorphine Screen Not Detected; U Cannabinoids Screen Not Detected; U Cocaine Screen Not Detected; U Methadone Screen Not Detected; U Methamphetamine Screen Not Detected; U Opiates Screen DETECTED; U Oxycodone Screen Not Detected; U Phencyclidine Screen Not Detected
== END | disposition home or self-care (01) ==
LOC: LAB SHORT 13:56
PROVIDERS: Internal Medicine Hematology & Oncology
DX: Z51.81 Encounter for therapeutic drug level monitoring (principal); Z79.899 Other long term (current) drug therapy

== ENCOUNTER → 2024-03-28 | Outpatient (CLI) | payer MEDICARE, BC | END | disposition home or self-care (01) | LOC: LAB SHORT 13:15 → LAB 13:15 | DX: Z51.81 Encounter for therapeutic drug level monitoring (principal); Z79.899 Other long term (current) drug therapy ==

== ENCOUNTER → 2024-05-29 | Outpatient (CLI) | payer MEDICARE, BC ==
[2024-05-29 11:55] LABS: U Amphetamine Screen Not Detected; U Barbituate Screen Not Detected; U Benzodiazapine Screen Not Detected; U Buprenorphine Screen Not Detected; U Cannabinoids Screen Not Detected; U Cocaine Screen Not Detected; U Methadone Screen Not Detected; U Methamphetamine Screen Not Detected; U Opiates Screen DETECTED; U Oxycodone Screen Not Detected; U Phencyclidine Screen Not Detected
== END ==
LOC: LAB SHORT 09:13 → LAB 09:13
PROVIDERS: Internal Medicine Hematology & Oncology
DX: C04.9 Malignant neoplasm of floor of mouth, unspecified (principal); G89.4 Chronic pain syndrome; Z79.899 Other long term (current) drug therapy

== ENCOUNTER 2024-09-10 12:47 | Emergency (ER) | payer MEDICARE, BC ==
[~2024-09-10] VITALS: Ht 170.2 cm; Wt 47.6 kg
[2024-09-10 13:02] VITALS: BP 106/51
[2024-09-10] MEDS ORDERED: Ondansetron HCl 2 MG / ML 2ML Vial IV PRN (13:05)
[2024-09-10 13:56] LABS: BASOPHILS ABSOLUTE AUTO 0.06 K/mm3 (0.00-0.23); BASOPHILS PERCENT AUTO 1 % (0-2); EOSINOPHILS PERCENT AUTO 1 % (0-6); Hematocrit 35.2 % (37.0-53.0); Hemoglobin 11.5 g/dL (13.5-17.5); IMMATURE GRAN ABSOLUTE AUTO 0.03 K/mm3 (0.00-0.10); IMMATURE GRAN PERCENT AUTO 0 % (0-1); LYMPHOCYTES ABSOLUTE AUTO 1.76 K/mm3 (0.84-5.20); LYMPHOCYTES PERCENT AUTO 15 % (21-46); MONOCYTES ABSOLUTE AUTO 0.61 K/mm3 (0.16-1.47); MONOCYTES PERCENT AUTO 5 % (4-13); Mean Corpuscular HGB 32.6 pg (26.0-34.0); Mean Corpuscular HGB Conc 32.7 g/dL (31.5-36.5); Mean Corpuscular Volume 100 fL (80-100); Mean Platelet Volume 9.1 fL (9.1-12.4); NEUTROPHILS ABSOLUTE AUTO 9.06 K/mm3 (1.96-9.15); NEUTROPHILS PERCENT AUTO 78 % (41-73); Platelet Count 247 K/mm3 (150-400); RDW Coefficient Variation 12.6 % (11.7-14.2); RDW Standard Deviation 46.1 fL (35.1-46.3); Red Blood Cell Count 3.53 M/mm3 (4.30-5.90); White Blood Cell Count 11.62 K/mm3 (4.00-11.30)
[2024-09-10 14:17] LABS: Albumin, Blood 3.5 g/dL (3.4-5.0); Albumin/Globulin Ratio 0.8 (0.8-1.8); Bilirubin, Total 0.3 mg/dL (0.1-1.0); Bun/Creatinine Ratio 15.4 (12.0-20.0); Calcium, Blood 9.5 mg/dL (8.5-10.1); Creatinine, Blood 0.72 mg/dL (0.60-1.20); Globulin, Blood 4.2 g/dL (2.2-4.0); Total Protein, Blood 7.7 g/dL (6.4-8.2)
== END 2024-09-10 15:38 | disposition home or self-care (01) ==
LOC: ER 12:47
PROVIDERS: Emergency Medicine
DX: F41.9 Anxiety disorder, unspecified (principal); T38.0X5A Adverse effect of glucocorticoids and synthetic analogues, initial encounter; Z79.52 Long term (current) use of systemic steroids; Z79.82 Long term (current) use of aspirin; Z79.51 Long term (current) use of inhaled steroids; Z88.5 Allergy status to narcotic agent; Z79.899 Other long term (current) drug therapy
CPT/HCPCS: 71046; 80053; 83690; 84484; 85025; 93005; 93010; 99283-25

== ENCOUNTER → 2024-09-25 | Outpatient (CLI) | payer MEDICARE, BC ==
[2024-09-25 14:47] LABS: U Amphetamine Screen Not Detected; U Barbituate Screen Not Detected; U Benzodiazapine Screen Not Detected; U Buprenorphine Screen Not Detected; U Cannabinoids Screen Not Detected; U Cocaine Screen Not Detected; U Methadone Screen Not Detected; U Methamphetamine Screen Not Detected; U Opiates Screen DETECTED; U Oxycodone Screen Not Detected; U Phencyclidine Screen Not Detected
== END ==
LOC: LAB 10:20 → LAB SHORT 10:20
PROVIDERS: Internal Medicine Hematology & Oncology
DX: Z51.81 Encounter for therapeutic drug level monitoring (principal); Z79.899 Other long term (current) drug therapy

== ENCOUNTER → 2024-10-23 | Outpatient (CLI) | payer MEDICARE, BC ==
[2024-10-23 14:44] LABS: U Amphetamine Screen Not Detected; U Barbituate Screen Not Detected; U Benzodiazapine Screen Not Detected; U Buprenorphine Screen Not Detected; U Cannabinoids Screen Not Detected; U Cocaine Screen Not Detected; U Methadone Screen Not Detected; U Methamphetamine Screen Not Detected; U Opiates Screen DETECTED; U Oxycodone Screen Not Detected; U Phencyclidine Screen Not Detected
== END | disposition home or self-care (01) ==
LOC: LAB 12:49 → LAB SHORT 12:49
PROVIDERS: Internal Medicine Hematology & Oncology
DX: Z51.81 Encounter for therapeutic drug level monitoring (principal); Z79.899 Other long term (current) drug therapy

== ENCOUNTER → 2024-11-27 | Outpatient (CLI) | payer MEDICARE, BC ==
[2024-11-27 15:13] LABS: U Opiates Screen DETECTED
[2024-11-27 15:14] LABS: U Amphetamine Screen Not Detected; U Barbituate Screen Not Detected; U Benzodiazapine Screen Not Detected; U Buprenorphine Screen Not Detected; U Cannabinoids Screen Not Detected; U Cocaine Screen Not Detected; U Methadone Screen Not Detected; U Methamphetamine Screen Not Detected; U Oxycodone Screen Not Detected; U Phencyclidine Screen Not Detected
== END ==
LOC: LAB SHORT 13:28 → LAB 13:28
PROVIDERS: Internal Medicine Hematology & Oncology
DX: Z51.81 Encounter for therapeutic drug level monitoring (principal); Z79.899 Other long term (current) drug therapy

== ENCOUNTER 2024-12-19 08:42 | Inpatient (IN) | payer OTHER, MEDICARE, BC ==
[~2024-12-19] VITALS: Ht 170.2 cm; Wt 47.4 kg
[2024-12-19] MEDS ORDERED: Morphine Sulfate 4 MG/1 ML Injection IV ONE (08:50)
[2024-12-19] MEDS ORDERED: Ketorolac Tromethamine 15mg Vial IV ONE (08:50)
[2024-12-19 09:28] LABS: BASOPHILS ABSOLUTE AUTO 0.05 K/mm3 (0.00-0.23); BASOPHILS PERCENT AUTO 0 % (0-2); EOSINOPHILS ABSOLUTE AUTO 0.01 K/mm3 (0.00-0.68); EOSINOPHILS PERCENT AUTO 0 % (0-6); Hematocrit 33.2 % (37.0-53.0); Hemoglobin 11.1 g/dL (13.5-17.5); IMMATURE GRAN ABSOLUTE AUTO 0.12 K/mm3 (0.00-0.10); IMMATURE GRAN PERCENT AUTO 1 % (0-1); LYMPHOCYTES ABSOLUTE AUTO 1.57 K/mm3 (0.84-5.20); LYMPHOCYTES PERCENT AUTO 8 % (21-46); MONOCYTES ABSOLUTE AUTO 1.14 K/mm3 (0.16-1.47); MONOCYTES PERCENT AUTO 6 % (4-13); Mean Corpuscular HGB 33.1 pg (26.0-34.0); Mean Corpuscular HGB Conc 33.4 g/dL (31.5-36.5); Mean Corpuscular Volume 99 fL (80-100); Mean Platelet Volume 9.6 fL (9.1-12.4); NEUTROPHILS ABSOLUTE AUTO 16.26 K/mm3 (1.96-9.15); NEUTROPHILS PERCENT AUTO 85 % (41-73); Platelet Count 186 K/mm3 (150-400); RDW Coefficient Variation 12.1 % (11.7-14.2); RDW Standard Deviation 44.4 fL (35.1-46.3); Red Blood Cell Count 3.35 M/mm3 (4.30-5.90); White Blood Cell Count 19.15 K/mm3 (4.00-11.30)
[2024-12-19 09:30] LABS: Base Excess Venous 4.4 mmol/L; Bicarbonate Venous 27.5 mmol/L (24.0-30.0); PCO2 Venous 52.8 mmHg (38-42); pH Blood Venous 7.36 (7.34-7.37)
[2024-12-19] MEDS ORDERED: CefTRIAXone Sodium 2,000 MG in NS 100 ML IV ONE (09:30)
[2024-12-19] MEDS ORDERED: MethylPREDNISolone Sod Succ 125 MG Vial IV ONE (09:30)
[2024-12-19] MEDS ORDERED: Azithromycin 250 MG Tab PO ONE (09:30)
[2024-12-19] MEDS ORDERED: NS 1,000 ML IV SCH ×2 (09:30→14:10)
[2024-12-19 09:45] LABS: Albumin, Blood 3.4 g/dL (3.4-5.0); Albumin/Globulin Ratio 0.9 (0.8-1.8); Bilirubin, Total 0.8 mg/dL (0.1-1.0); Bun/Creatinine Ratio 17.4 (12.0-20.0); Calcium, Blood 9.2 mg/dL (8.5-10.1); Creatinine, Blood 0.86 mg/dL (0.60-1.20); Globulin, Blood 3.9 g/dL (2.2-4.0); Magnesium, Blood 1.7 mg/dL (1.6-2.4); Potassium, Blood 4.2 mmol/L (3.5-5.5); Total Protein, Blood 7.3 g/dL (6.4-8.2)
[2024-12-19 10:05] LABS: Influenza A, PCR NEGATIVE (NEGATIVE); Influenza B, PCR NEGATIVE (NEGATIVE); Resp Syncytial Virus, PCR NEGATIVE (NEGATIVE); SARS-Cov-2 (COVID-19) PCR, MMC NEGATIVE (NEGATIVE)
[2024-12-19] MEDS ORDERED: Ondansetron 4 MG TAB PO PRN (13:15)
[2024-12-19] MEDS ORDERED: FLU VACC TS2024-25(6MOS UP)/PF 45 MCG/0.5 ML SYRINGE IM SCH (13:15)
[2024-12-19] MEDS ORDERED: Tiotropium Bromide 2.5 MCG/ACT MIST INHAL (10 ACT/4 GM) INH SCH (14:35)
[2024-12-19] MEDS ORDERED: HYDROcodone 10-APAP 325 TAB PO PRN (14:40)
[2024-12-19] MEDS ORDERED: Mometasone/Formoterol MDI 200/5 mcg 13 GM INH SCH (14:45)
[2024-12-19] MEDS ORDERED: Albuterol HFA200 ACT/6.7 GM INH INH PRN (14:45)
[2024-12-19 14:49] VITALS: BP 155/69
[2024-12-19] MEDS ORDERED: MethylPREDNISolone Sod Succ 40 MG VIAL IV SCH (16:00)
[2024-12-19] MEDS ORDERED: Ketorolac Tromethamine 30mg Vial IV PRN (16:50)
--- NOTE | 2024-12-19 18:19 | NUR ---
SHIFT SUMMARY PT ADMITTED FROM THE ED THIS AFTERNOON. PT CURRENTLY ON 4L, SATS >90%, PT REPORTS USING 3L NC AT BASELINE. PT IS A SBA TO BATHROOM D/T INCREASED WEAKNESS AND SOB WITH EXERTION. NS RUNNING @ 100 ML/HR X1 BAG. PT REPORTED PAIN AT TIME OF ADMIT TO HIS BACK, PT DENIED CHEST PAIN AT THE TIME, MEDICATED WITH NORCO PER JAN. FAMILY AT BEDSIDE THIS AFTERNOON.
[2024-12-19 20:13] VITALS: BP 114/62
[2024-12-19 21:18] LABS: Adenovirus Not Detected (NOT DETECT); Bordetella pertussis Not Detected (NOT DETECT); Chlamydophila pneumoniae Not Detected (NOT DETECT); Coronavirus 229E Not Detected (NOT DETECT); Coronavirus HKU1 Not Detected (NOT DETECT); Coronavirus NL63 Not Detected (NOT DETECT); Coronavirus OC43 Not Detected (NOT DETECT); Human Metapneumovirus Not Detected (NOT DETECT); Human Rhinovirus/Enterovirus Not Detected (NOT DETECT); Influenza A/2009-H1 Not Detected (NOT DETECT); Influenza A/H1 Not Detected (NOT DETECT); Influenza A/H3 Not Detected (NOT DETECT); Influenza B Not Detected (NOT DETECT); Mycoplasma pneumoniae Not Detected (NOT DETECT); Parainfluenza Virus 1 Not Detected (NOT DETECT); Parainfluenza Virus 2 Not Detected (NOT DETECT); Parainfluenza Virus 3 Not Detected (NOT DETECT); Parainfluenza Virus 4 Not Detected (NOT DETECT); Respiratory Syncytial Virus Not Detected (NOT DETECT); SARS-Cov-2 (COVID-19), BioFire Not Detected (NOT DETECT)
[2024-12-20 04:31] VITALS: BP 118/60
[2024-12-20 06:11] LABS: BASOPHILS ABSOLUTE AUTO 0.01 K/mm3 (0.00-0.23); BASOPHILS PERCENT AUTO 0 % (0-2); EOSINOPHILS PERCENT AUTO 0 % (0-6); Hematocrit 29.7 % (37.0-53.0); Hemoglobin 9.9 g/dL (13.5-17.5); IMMATURE GRAN PERCENT AUTO 1 % (0-1); LYMPHOCYTES ABSOLUTE AUTO 0.81 K/mm3 (0.84-5.20); LYMPHOCYTES PERCENT AUTO 5 % (21-46); MONOCYTES ABSOLUTE AUTO 0.34 K/mm3 (0.16-1.47); MONOCYTES PERCENT AUTO 2 % (4-13); Mean Corpuscular HGB 32.6 pg (26.0-34.0); Mean Corpuscular HGB Conc 33.3 g/dL (31.5-36.5); Mean Corpuscular Volume 98 fL (80-100); Mean Platelet Volume 9.7 fL (9.1-12.4); NEUTROPHILS ABSOLUTE AUTO 13.82 K/mm3 (1.96-9.15); NEUTROPHILS PERCENT AUTO 92 % (41-73); Platelet Count 155 K/mm3 (150-400); RDW Standard Deviation 43.1 fL (35.1-46.3); Red Blood Cell Count 3.04 M/mm3 (4.30-5.90); White Blood Cell Count 15.08 K/mm3 (4.00-11.30)
--- NOTE | 2024-12-20 06:13 | NUR ---
REPATCHER SUMMARY PT A/OX4. ABLE TO MAKE NEEDS KNOWN. PT ON 4.5LPM T/O THE NIGHT; PT TOLERATING WELL. NO C/O SOB. DROPPED THIS MORNING TO 4LPM. PT IN ON 3-3.5 AT BASELINE. PT CONTINUES TO REPORT LOW/MID BACK AND FLANK PAIN; INCREASED WITH INSPIRATION. PT GIVEN MEDS PER JAN. PT HAS BEEN WAKEFUL OFF AND ON T/O THE NIGHT. CALL LIGHT ACCESSBILE. REGULAR INTERVAL ROUNDING COMPLETE. CARE WILL CONTINUE UNTIL REPORT GIVEN TO ONCOMING NURSE.
[2024-12-20 06:39] LABS: Albumin/Globulin Ratio 0.8 (0.8-1.8); Bilirubin, Total 0.3 mg/dL (0.1-1.0); Bun/Creatinine Ratio 21.7 (12.0-20.0); Creatinine, Blood 0.83 mg/dL (0.60-1.20); Globulin, Blood 3.9 g/dL (2.2-4.0); Magnesium, Blood 1.8 mg/dL (1.6-2.4); Potassium, Blood 4.3 mmol/L (3.5-5.5); Total Protein, Blood 6.9 g/dL (6.4-8.2)
[2024-12-20 07:30] VITALS: BP 119/65
[2024-12-20] MEDS ORDERED: Aspirin 81 MG TabEC PO SCH (09:00)
[2024-12-20] MEDS ORDERED: CefTRIAXone Sodium 1,000 MG in NS 100 ML IV SCH (09:00)
[2024-12-20] MEDS ORDERED: Enoxaparin 40 MG/0.4 ML SYR SC SCH (09:00)
[2024-12-20] MEDS ORDERED: Azithromycin 250 MG Tab PO SCH (09:00)
[2024-12-20] MEDS ORDERED: CEFP200 PO (13:47)
[2024-12-20] MEDS ORDERED: PRED20 PO (13:48)
[2024-12-20] MEDS ORDERED: AZIT500 PO (13:49)
--- NOTE | 2024-12-20 14:46 | NUR ---
PT DISCHARGED AT 1415. ALL PAPERWORK WAS REVIEWED AND EDUCATIONAL MATERIAL SENT WITH PT. PT HAD HIS PERSONAL O2 TANK AND WAS DOING WELL AT 3L SATING HIGHER 90s. AOX4 AND COOPERATIVE OF CARE. NO DISTRESS NOTED. PT ESCORTED OUT VIA WHEELCHAIR WITH TO TRANSPORT.
== END 2024-12-20 14:16 | disposition home or self-care (01) | DRG 871 ==
LOC: ER 08:42 → MEDS 13:13
PROVIDERS: Emergency Medicine; ADMIT Internal Medicine
DX: A41.9 Sepsis, unspecified organism (principal); J18.9 Pneumonia, unspecified organism; J96.21 Acute and chronic respiratory failure with hypoxia; J96.22 Acute and chronic respiratory failure with hypercapnia; J44.1 Chronic obstructive pulmonary disease with (acute) exacerbation; E87.20 Acidosis, unspecified; Z68.1 Body mass index [BMI] 19.9 or less, adult; R65.20 Severe sepsis without septic shock; N40.0 Benign prostatic hyperplasia without lower urinary tract symptoms; I25.10 Atherosclerotic heart disease of native coronary artery without angina pectoris; I73.9 Peripheral vascular disease, unspecified; G47.33 Obstructive sleep apnea (adult) (pediatric); E78.5 Hyperlipidemia, unspecified; R91.8 Other nonspecific abnormal finding of lung field; G89.4 Chronic pain syndrome; F32.A Depression, unspecified; F17.210 Nicotine dependence, cigarettes, uncomplicated; Z88.5 Allergy status to narcotic agent; Z79.51 Long term (current) use of inhaled steroids; Z79.82 Long term (current) use of aspirin; Z95.1 Presence of aortocoronary bypass graft; Z79.891 Long term (current) use of opiate analgesic; Z95.2 Presence of prosthetic heart valve; Z90.49 Acquired absence of other specified parts of digestive tract; Z98.890 Other specified postprocedural states; Z85.89 Personal history of malignant neoplasm of other organs and systems; Z51.0 Encounter for antineoplastic radiation therapy; Z79.899 Other long term (current) drug therapy; Z86.79 Personal history of other diseases of the circulatory system; Z71.6 Tobacco abuse counseling; Z85.819 Personal history of malignant neoplasm of unspecified site of lip, oral cavity, and pharynx; Z90.89 Acquired absence of other organs
CPT/HCPCS: 0202U; 0241U; 36415; 71045; 71260; 80053; 82803; 83605; 83735; 83880; 84145; 85025; 85379; 93005; 93010; 94640; 94664; 94760; 96374; 96375; 99285-25; A9270; J0696; J1650; J1885; J2270; J2919; J7030; Q9967

== ENCOUNTER 2025-03-25 06:54 | Emergency (ER) | payer MEDICARE, BC ==
[~2025-03-25] VITALS: Ht 170.2 cm; Wt 47.2 kg
[~2025-03-25 06:54] MED LIST changes: +AZIT500 PO
[2025-03-25] MEDS ORDERED: MethylPREDNISolone Sod Succ 125 MG Vial IV ONE (07:30)
[2025-03-25] MEDS ORDERED: Ipratropium Bromide INH 0.02% 0.5 mg/2.5ML Vial INH SCH (07:30)
[2025-03-25] MEDS ORDERED: Albuterol 2.5 MG/3 ML VIAL INH SCH (07:30)
[2025-03-25 07:48] LABS: BASOPHILS ABSOLUTE AUTO 0.07 K/mm3 (0.00-0.23); BASOPHILS PERCENT AUTO 1 % (0-2); EOSINOPHILS ABSOLUTE AUTO 0.25 K/mm3 (0.00-0.68); EOSINOPHILS PERCENT AUTO 3 % (0-6); Hematocrit 33.8 % (37.0-53.0); Hemoglobin 10.8 g/dL (13.5-17.5); IMMATURE GRAN ABSOLUTE AUTO 0.01 K/mm3 (0.00-0.10); IMMATURE GRAN PERCENT AUTO 0 % (0-1); LYMPHOCYTES ABSOLUTE AUTO 1.39 K/mm3 (0.84-5.20); LYMPHOCYTES PERCENT AUTO 17 % (21-46); MONOCYTES PERCENT AUTO 8 % (4-13); Mean Corpuscular HGB 32.2 pg (26.0-34.0); Mean Corpuscular Volume 101 fL (80-100); Mean Platelet Volume 9.4 fL (9.1-12.4); NEUTROPHILS ABSOLUTE AUTO 5.99 K/mm3 (1.96-9.15); NEUTROPHILS PERCENT AUTO 71 % (41-73); Platelet Count 174 K/mm3 (150-400); RDW Coefficient Variation 12.2 % (11.7-14.2); RDW Standard Deviation 46.1 fL (35.1-46.3); Red Blood Cell Count 3.35 M/mm3 (4.30-5.90); White Blood Cell Count 8.41 K/mm3 (4.00-11.30)
[2025-03-25] MEDS ORDERED: NS 500 ML IV SCH (07:55)
[2025-03-25 08:08] LABS: Albumin, Blood 3.5 g/dL (3.4-5.0); Bilirubin, Total 0.4 mg/dL (0.1-1.0); Creatinine, Blood 0.82 mg/dL (0.60-1.20); Globulin, Blood 3.5 g/dL (2.2-4.0); Potassium, Blood 4.2 mmol/L (3.5-5.5)
[2025-03-25 09:05] LABS: Source, Urine Clean Catch
[2025-03-25] MEDS ORDERED: Azithromycin 250 MG Tab PO ONE (09:05)
[2025-03-25] MEDS ORDERED: AZIT250 PO (09:07)
[2025-03-25] MEDS ORDERED: PRED20 PO (09:07)
[2025-03-25 09:09] LABS: Appearance, Urine Clear (Clear); Bilirubin, Urine Neg (Neg); Blood, Urine 1+ (Neg); Color, Urine Yellow (P-Yellow); Glucose Qualitative, Urine Neg (Neg); Ketones, Urine Neg (Neg); Leukocyte Esterase, Urine Neg (Neg); Nitrite, Urine Neg (Neg); Protein, Urine Neg (Neg); Urobilinogen, Urine NORM (Normal)
[2025-03-25 09:21] VITALS: BP 122/105
[2025-03-25 09:44] LABS: Red Blood Cells, Urine 0-2 /hpf (0-2); White Blood Cells, Urine 0-2 /hpf (0-5)
[2025-03-25 09:45] LABS: Bacteria Rare /hpf; Mucus Light (0-Heavy); Squamous Epithelial Cells Rare /hpf (Few)
== END 2025-03-25 09:31 | disposition home or self-care (01) ==
LOC: ER 06:54
PROVIDERS: Student in an Organized Health Care Education/Training Program
DX: J44.1 Chronic obstructive pulmonary disease with (acute) exacerbation (principal); F17.210 Nicotine dependence, cigarettes, uncomplicated; Z88.5 Allergy status to narcotic agent; Z79.82 Long term (current) use of aspirin; Z79.899 Other long term (current) drug therapy; Z79.52 Long term (current) use of systemic steroids; Z95.2 Presence of prosthetic heart valve
CPT/HCPCS: 71046; 80053; 81001; 84484; 85025; 93005; 93010; 96374; 99285-25; A9270; J2919; J7030

== ENCOUNTER 2025-03-31 07:32 | Observation (INO) | payer MEDICARE, BC ==
[~2025-03-31] VITALS: Ht 170.2 cm; Wt 47.7 kg
[2025-03-31] MEDS ORDERED: MethylPREDNISolone Sod Succ 125 MG Vial IV ONE (07:40)
[2025-03-31] MEDS ORDERED: NS 1,000 ML IV SCH (07:45)
[2025-03-31 07:51] LABS: BASOPHILS ABSOLUTE AUTO 0.02 K/mm3 (0.00-0.23); BASOPHILS PERCENT AUTO 0 % (0-2); EOSINOPHILS ABSOLUTE AUTO 0.23 K/mm3 (0.00-0.68); EOSINOPHILS PERCENT AUTO 2 % (0-6); Hematocrit 40.8 % (37.0-53.0); Hemoglobin 13.6 g/dL (13.5-17.5); IMMATURE GRAN ABSOLUTE AUTO 0.04 K/mm3 (0.00-0.10); IMMATURE GRAN PERCENT AUTO 0 % (0-1); LYMPHOCYTES ABSOLUTE AUTO 1.56 K/mm3 (0.84-5.20); LYMPHOCYTES PERCENT AUTO 10 % (21-46); MONOCYTES ABSOLUTE AUTO 1.02 K/mm3 (0.16-1.47); MONOCYTES PERCENT AUTO 7 % (4-13); Mean Corpuscular HGB 33.2 pg (26.0-34.0); Mean Corpuscular HGB Conc 33.3 g/dL (31.5-36.5); Mean Corpuscular Volume 100 fL (80-100); Mean Platelet Volume 9.5 fL (9.1-12.4); NEUTROPHILS ABSOLUTE AUTO 12.54 K/mm3 (1.96-9.15); NEUTROPHILS PERCENT AUTO 81 % (41-73); Platelet Count 203 K/mm3 (150-400); RDW Standard Deviation 44.4 fL (35.1-46.3); White Blood Cell Count 15.41 K/mm3 (4.00-11.30)
[2025-03-31 08:10] LABS: Albumin, Blood 3.9 g/dL (3.4-5.0); Albumin/Globulin Ratio 1.1 (0.8-1.8); Bilirubin, Total 0.9 mg/dL (0.1-1.0); Bun/Creatinine Ratio 16.9 (12.0-20.0); Calcium, Blood 9.2 mg/dL (8.5-10.1); Creatinine, Blood 0.77 mg/dL (0.60-1.20); Globulin, Blood 3.6 g/dL (2.2-4.0); Magnesium, Blood 1.9 mg/dL (1.6-2.4); Potassium, Blood 3.6 mmol/L (3.5-5.5); Total Protein, Blood 7.5 g/dL (6.4-8.2)
[2025-03-31] MEDS ORDERED: Albuterol 2.5 MG/3 ML VIAL INH SCH (08:25)
[2025-03-31 08:59] LABS: Influenza A, PCR NEGATIVE (NEGATIVE); Influenza B, PCR NEGATIVE (NEGATIVE); Resp Syncytial Virus, PCR NEGATIVE (NEGATIVE); SARS-Cov-2 (COVID-19) PCR, MMC NEGATIVE (NEGATIVE)
[2025-03-31 09:50] LABS: Source, Urine Clean Catch
[2025-03-31] MEDS ORDERED: HyDROXyzine HCl 25 MG Tab PO ONE (09:55)
[2025-03-31 10:00] LABS: Appearance, Urine Hazy (Clear); Bilirubin, Urine Neg (Neg); Blood, Urine Neg (Neg); Color, Urine Yellow (P-Yellow); Glucose Qualitative, Urine Neg (Neg); Ketones, Urine Neg (Neg); Leukocyte Esterase, Urine Neg (Neg); Nitrite, Urine Neg (Neg); Protein, Urine Neg (Neg); Urobilinogen, Urine 1+ (Normal)
[2025-03-31 10:39] LABS: Red Blood Cells, Urine 0-2 /hpf (0-2); White Blood Cells, Urine 0-2 /hpf (0-5)
[2025-03-31 10:41] LABS: Amorphous Heavy (0-Heavy); Bacteria Rare /hpf; Squamous Epithelial Cells Rare /hpf (Few)
[2025-03-31 11:36] LABS: Base Excess Venous 5.5 mmol/L; Bicarbonate Venous 28.6 mmol/L (24.0-30.0); PCO2 Venous 49.5 mmHg (38-42)
[2025-03-31] MEDS ORDERED: Albuterol 2.5 MG/3 ML VIAL INH PRN (12:40)
[2025-03-31] MEDS ORDERED: Ipratropium/Albuterol SulF 2.5-0.5MG/3 ML Amp INH SCH (12:40)
[2025-03-31] MEDS ORDERED: CefTRIAXone Sodium 1,000 MG in NS 100 ML IV SCH (13:00)
--- NOTE | 2025-03-31 15:05 | NUR ---
1450- RECEIVED REPORT FROM MOTION STUDY ANALYST.
[2025-03-31] MEDS ORDERED: HYDROcodone 10-APAP 325 TAB PO PRN (15:20)
[2025-03-31] MEDS ORDERED: Mometasone/Formoterol MDI 200/5 mcg 13 GM INH SCH (15:20)
[2025-03-31 16:00] VITALS: BP 139/69
[2025-03-31] MEDS ORDERED: MethylPREDNISolone Sod Succ 40 MG VIAL IV SCH (16:00)
[2025-03-31] MEDS ORDERED: NS 250 ML IV PRN (16:10)
[2025-03-31] MEDS ORDERED: MIRT30 PO (16:21)
[2025-03-31] MEDS ORDERED: PRAV20 PO (16:21)
[2025-03-31] MEDS ORDERED: NICO21TP TOP (16:23)
--- NOTE | 2025-03-31 18:05 | NUR ---
1800- MD SCHUMACHER CALLED AND NOTIFIED OF PT'S STAGE 1 PRESSURE ULCER ON HIS COCCYX. PICS TAKEN. ALLEVYN DRESSING PLACED FOR PROTECTION AND PRESSURE ULCER EDUCATION GIVEN TO PT.
--- NOTE | 2025-03-31 18:39 | NUR ---
SUMMARY- PT AAOX4. MILDLY ANXIOUS. SBA TO BATHROOM. PT ON 2-4 L VIA NC DEPENDING ON IF PT IS RESTING IN BED (2L) OR AMBULATING (4L). PT DENIES PAIN SINCE ARRIVING ON THE MEDICAL FLOOR. NO ACUTE EVENTS THIS SHIFT. WOUND CARE PROTOCOL ORDERS PLACED. WOUND CARE PERFORMED PER PROTOCOL. PT HAS GOOD APPETITE.
[2025-03-31] MEDS ORDERED: ZINC OXIDE/PETROLATUM, YELLOW 1 APPLIC/71 GM PASTE TOP PRN (18:40)
[2025-03-31] MEDS ORDERED: Nicotine 21 MG PATCH TOP SCH (19:25)
[2025-03-31] MEDS ORDERED: HyDROXyzine HCl 25 MG Tab PO PRN (19:25)
[2025-03-31 19:45] VITALS: BP 114/62
[2025-04-01 04:31] VITALS: BP 127/75
--- NOTE | 2025-04-01 05:18 | NUR ---
SHIFT SUMMARY: PT AOX4 WITH SOME BOUTS OF ANXIETY. SEEMS FIXATED ON GETTING ON A [employer] PSYCH PRESCRIPTION AN AID. TOLD TO FOLLOW UP WITH PCP. ATARAX HAS OFFERED SOME RELIEF THIS STAY. HACKING NON PRODUCTIVE COUGH HAS NEEDED ANYWHERE FROM 2-4 L DEPENDING ON EXERTION OR ACTIVITY. PT VERY PLEASANT AND COOPERATIVE IN CARE. CALLS APPROPRIATELY AND IS ABLE TO MAKE NEEDS KNOWN. NO ACUTE OVERNIGHT EVENTS. PT IS IN BED RESTING, BED IN LOWEST POSITION. CALL LIGHT IN REACH. CONTINUING CARE.
[2025-04-01 05:58] LABS: BASOPHILS ABSOLUTE AUTO 0.01 K/mm3 (0.00-0.23); BASOPHILS PERCENT AUTO 0 % (0-2); EOSINOPHILS PERCENT AUTO 0 % (0-6); Hematocrit 31.3 % (37.0-53.0); Hemoglobin 10.4 g/dL (13.5-17.5); IMMATURE GRAN ABSOLUTE AUTO 0.06 K/mm3 (0.00-0.10); IMMATURE GRAN PERCENT AUTO 1 % (0-1); LYMPHOCYTES ABSOLUTE AUTO 0.56 K/mm3 (0.84-5.20); LYMPHOCYTES PERCENT AUTO 4 % (21-46); MONOCYTES ABSOLUTE AUTO 0.25 K/mm3 (0.16-1.47); MONOCYTES PERCENT AUTO 2 % (4-13); Mean Corpuscular HGB 32.8 pg (26.0-34.0); Mean Corpuscular HGB Conc 33.2 g/dL (31.5-36.5); Mean Corpuscular Volume 99 fL (80-100); Mean Platelet Volume 9.9 fL (9.1-12.4); NEUTROPHILS ABSOLUTE AUTO 11.95 K/mm3 (1.96-9.15); NEUTROPHILS PERCENT AUTO 93 % (41-73); Platelet Count 163 K/mm3 (150-400); RDW Coefficient Variation 11.9 % (11.7-14.2); RDW Standard Deviation 43.1 fL (35.1-46.3); Red Blood Cell Count 3.17 M/mm3 (4.30-5.90); White Blood Cell Count 12.83 K/mm3 (4.00-11.30)
[2025-04-01 06:33] LABS: Bun/Creatinine Ratio 17.8 (12.0-20.0); Calcium, Blood 7.3 mg/dL (8.5-10.1); Creatinine, Blood 0.73 mg/dL (0.60-1.20)
[2025-04-01 07:18] VITALS: BP 131/71
[2025-04-01] MEDS ORDERED: Aspirin 81 MG TabEC PO SCH (09:00)
[2025-04-01] MEDS ORDERED: Enoxaparin 40 MG/0.4 ML SYR SC SCH (09:00)
[2025-04-01] MEDS ORDERED: CEFP200 PO (14:19)
[2025-04-01] MEDS ORDERED: Prednisone10 MG PO (14:21)
[2025-04-01] MEDS ORDERED: DULERA 100 MCG/13 GM INH (14:23)
--- NOTE | 2025-04-01 16:45 | NUR ---
1500- PT LEFT IN STABLE CONDITION WITH DAUGHTER RIDE. PT LEFT WITH O2 TANK ON 2-4 L VIA NC. PT LEFT WITH ALL BELONGINGS.
== END 2025-04-01 15:31 | disposition home or self-care (01) ==
LOC: ER 07:32 → MEDS 07:33
PROVIDERS: Emergency Medicine; ADMIT Internal Medicine
DX: J44.1 Chronic obstructive pulmonary disease with (acute) exacerbation (principal); J96.11 Chronic respiratory failure with hypoxia; G47.00 Insomnia, unspecified; F17.200 Nicotine dependence, unspecified, uncomplicated; R13.12 Dysphagia, oropharyngeal phase; I25.10 Atherosclerotic heart disease of native coronary artery without angina pectoris; G89.29 Other chronic pain; I73.9 Peripheral vascular disease, unspecified; Z95.1 Presence of aortocoronary bypass graft; Z88.5 Allergy status to narcotic agent; Z79.82 Long term (current) use of aspirin; Z79.899 Other long term (current) drug therapy
CPT/HCPCS: 0241U; 36415; 71045; 80048; 80053; 81001; 82803; 83735; 83880; 84484; 85025; 93005; 93010; 94640; 94664; 94760; 94761; 94762; 96361; 96365; 96372; 96374; 96376; 99285-25; A9270; G0378; J0696; J1650; J2919; J7030; J7050

== ENCOUNTER → 2025-05-20 | Outpatient (CLI) | payer MEDICARE, BC ==
[~2025-05-20] MED LIST changes: +DULERA 100 MCG/13 GM INH; +MIRT30 PO; +NICO21TP TOP; +PRAV20 PO
[2025-05-20 14:58] LABS: U Amphetamine Screen Not Detected; U Barbituate Screen Not Detected; U Benzodiazapine Screen DETECTED; U Buprenorphine Screen Not Detected; U Cannabinoids Screen Not Detected; U Cocaine Screen Not Detected; U Methadone Screen Not Detected; U Methamphetamine Screen Not Detected; U Opiates Screen DETECTED; U Oxycodone Screen Not Detected; U Phencyclidine Screen Not Detected
== END ==
LOC: LAB 13:00 → LAB SHORT 13:00
PROVIDERS: Internal Medicine Hematology & Oncology
DX: G89.4 Chronic pain syndrome (principal); Z79.899 Other long term (current) drug therapy

== ENCOUNTER 2025-07-26 16:01 | Inpatient (IN) | payer MEDICARE, BC ==
[~2025-07-26] VITALS: Ht 170.2 cm; Wt 50.7 kg
[2025-07-26 16:28] LABS: pH Blood Venous 7.37 (7.34-7.37)
[2025-07-26] MEDS ORDERED: NS 1,000 ML IV SCH ×2 (16:50→21:25)
[2025-07-26 16:54] LABS: Alanine Aminotransfer (ALT/SGP 16 U/L (12-78); Albumin, Blood 3.1 g/dL (3.4-5.0); Albumin/Globulin Ratio 0.8 (0.8-1.8); Anion Gap 11 mmol/L (3-11); Aspartate Aminotrans (AST/SGOT 46 U/L (12-37); Bilirubin, Total 0.8 mg/dL (0.1-1.0); Blood Urea Nitrogen 13 mg/dL (8-24); CO2, Blood 24 mmol/L (21-32); Calcium, Blood 8.3 mg/dL (8.5-10.1); Chloride, Blood 96 mmol/L (98-108); Creatinine, Blood 0.86 mg/dL (0.60-1.20); Globulin, Blood 4.0 g/dL (2.2-4.0); Glucose, Blood 113 mg/dL (70-99); Potassium, Blood 4.8 mmol/L (3.5-5.5); Sodium, Blood 126 mmol/L (136-145); Total Protein, Blood 7.1 g/dL (6.4-8.2)
[2025-07-26 17:17] LABS: BASOPHILS ABSOLUTE AUTO 0.02 K/mm3 (0.00-0.23); BASOPHILS PERCENT AUTO 0 % (0-2); EOSINOPHILS ABSOLUTE AUTO 0.07 K/mm3 (0.00-0.68); EOSINOPHILS PERCENT AUTO 1 % (0-6); Hematocrit 32.2 % (37.0-53.0); Hemoglobin 10.8 g/dL (13.5-17.5); IMMATURE GRAN ABSOLUTE AUTO 0.03 K/mm3 (0.00-0.10); IMMATURE GRAN PERCENT AUTO 0 % (0-1); LYMPHOCYTES ABSOLUTE AUTO 1.73 K/mm3 (0.84-5.20); LYMPHOCYTES PERCENT AUTO 16 % (21-46); MONOCYTES ABSOLUTE AUTO 0.77 K/mm3 (0.16-1.47); MONOCYTES PERCENT AUTO 7 % (4-13); Mean Corpuscular HGB Conc 33.5 g/dL (31.5-36.5); Mean Corpuscular Volume 95 fL (80-100); NEUTROPHILS ABSOLUTE AUTO 8.55 K/mm3 (1.96-9.15); NEUTROPHILS PERCENT AUTO 77 % (41-73); NRBC ABSOLUTE 0.00 K/mm3 (0.00-0.02); NRBC Auto 0.0 /100 WBC (0.0-0.2); Platelet Count 176 K/mm3 (150-400); RDW Coefficient Variation 12.0 % (11.7-14.2); RDW Standard Deviation 42.3 fL (35.1-46.3)
[2025-07-26 18:55] LABS: Influenza A, PCR NEGATIVE (NEGATIVE); Influenza B, PCR NEGATIVE (NEGATIVE); Resp Syncytial Virus, PCR NEGATIVE (NEGATIVE); SARS-Cov-2 (COVID-19) PCR, MMC NEGATIVE (NEGATIVE)
[2025-07-26 19:59] LABS: Source, Urine Clean Catch
[2025-07-26 20:01] LABS: Bilirubin, Urine Neg (Neg); Glucose Qualitative, Urine Neg (Neg); Ketones, Urine Neg (Neg); Leukocyte Esterase, Urine Neg (Neg); Protein, Urine 1+ (Neg); Specific Gravity, Urine 1.015 (1.003-1.022); Urobilinogen, Urine 1+ (Normal)
[2025-07-26 20:07] LABS: Color, Urine Yellow (P-Yellow)
[2025-07-26] MEDS ORDERED: CefTRIAXone Sodium 1,000 MG in NS 100 ML IV ONE (21:00)
[2025-07-26] MEDS ORDERED: HYDROcodone 5-APAP 325 TAB PO PRN (21:20)
[2025-07-26] MEDS ORDERED: Ondansetron HCl 2 MG / ML 2ML Vial IV PRN (21:25)
[2025-07-26] MEDS ORDERED: Ipratropium/Albuterol SulF 2.5-0.5MG/3 ML Amp INH SCH (21:25)
[2025-07-26] MEDS ORDERED: Albuterol 2.5 MG/3 ML VIAL INH PRN (21:25)
[2025-07-26] MEDS ORDERED: Tiotropium Bromide 2.5 MCG/ACT MIST INHAL (10 ACT/4 GM) INH SCH (21:25)
[2025-07-26 22:42] LABS: Influenza A/2009-H1 Not Detected (NOT DETECT); SARS-Cov-2 (COVID-19), BioFire Not Detected (NOT DETECT)
[2025-07-26 23:53] VITALS: BP 127/59
--- NOTE | 2025-07-27 01:49 | NUR ---
ADMIT NOTE PT ADMIT FROM ED FOR HYPOXIA. A&OX4, ABLE TO MAKE NEEDS KNOWN. ORIENTED TO CALL LIGHT, ROOM, AND FALL AND SAFETY PRECAUTIONS. PLACED ON TELE, SR AT 100. ON 3L NC, WHICH IS PT'S BASELINE. REMAINS ON AIRBORNE CONTACT PRECAUTIONS IN A NEG PRESSURE ROOM FOR SHINGLES INFECTION. PICS PLACED IN CHART. 20G IV IN LFA. REMAINS WNL. BED RAILS UP X 2, BED IN LOWEST POSITION, BED WHEELS LOCKED, PERSONAL BELONGINGS AND CALL LIGHT WITHIN REACH FOR SAFETY.
[2025-07-27] MEDS ORDERED: Formoterol/Mometasone MDI 5/200 mcg 13 GM INH SCH (02:05)
[2025-07-27 04:06] VITALS: BP 142/66
--- NOTE | 2025-07-27 05:05 | NUR ---
SQL REPORT ANALYST SUMMARY NO ACUTE CHANGES SINCE ADMISSION. REMAINS ON TELE AND AIRBORNE CONTACT PRECAUTIONS. REMAINS ON 3L NC AT BASELINE. PT WILL REQUEST 5L NC FOR DYSPNEA W/ EXERTION. BED RAILS UP X 2, BED IN LOWEST POSITION, BED WHEELS LOCKED, PERSONAL BELONGINGS AND CALL LIGHT WITHIN REACH FOR SAFETY.
[2025-07-27 08:21] VITALS: BP 128/69
[2025-07-27] MEDS ORDERED: Enoxaparin 40 MG/0.4 ML SYR SC SCH (09:00)
[2025-07-27 14:26] LABS: BASOPHILS ABSOLUTE AUTO 0.03 K/mm3 (0.00-0.23); BASOPHILS PERCENT AUTO 0 % (0-2); EOSINOPHILS ABSOLUTE AUTO 0.03 K/mm3 (0.00-0.68); EOSINOPHILS PERCENT AUTO 0 % (0-6); Hematocrit 28.3 % (37.0-53.0); Hemoglobin 9.4 g/dL (13.5-17.5); IMMATURE GRAN ABSOLUTE AUTO 0.04 K/mm3 (0.00-0.10); IMMATURE GRAN PERCENT AUTO 1 % (0-1); LYMPHOCYTES ABSOLUTE AUTO 1.33 K/mm3 (0.84-5.20); LYMPHOCYTES PERCENT AUTO 15 % (21-46); MONOCYTES ABSOLUTE AUTO 0.70 K/mm3 (0.16-1.47); MONOCYTES PERCENT AUTO 8 % (4-13); Mean Corpuscular HGB Conc 33.2 g/dL (31.5-36.5); Mean Corpuscular Volume 97 fL (80-100); NEUTROPHILS ABSOLUTE AUTO 6.67 K/mm3 (1.96-9.15); NEUTROPHILS PERCENT AUTO 76 % (41-73); NRBC ABSOLUTE 0.00 K/mm3 (0.00-0.02); NRBC Auto 0.0 /100 WBC (0.0-0.2); Platelet Count 186 K/mm3 (150-400); RDW Coefficient Variation 12.2 % (11.7-14.2); RDW Standard Deviation 43.4 fL (35.1-46.3)
[2025-07-27 14:41] LABS: Anion Gap 7.0 mmol/L (3-11); Blood Urea Nitrogen 8.0 mg/dL (8-24); CO2, Blood 28.0 mmol/L (21-32); Calcium, Blood 8.0 mg/dL (8.5-10.1); Chloride, Blood 100.0 mmol/L (98-108); Creatinine, Blood 0.73 mg/dL (0.60-1.20); Glucose, Blood 110.0 mg/dL (70-99); Potassium, Blood 3.8 mmol/L (3.5-5.5); Sodium, Blood 131.0 mmol/L (136-145)
[2025-07-27] MEDS ORDERED: TRELEGY ELLIPT1 EAC1 IH (15:14)
[2025-07-27] MEDS ORDERED: CILOSTAZOL50 M1 PO (15:14)
[2025-07-27] MEDS ORDERED: ALEN70 PO (15:15)
[2025-07-27] MEDS ORDERED: MULVITA PO (15:16)
[2025-07-27] MEDS ORDERED: Ipratropium/Albuterol SulF 2.5-0.5MG/3 ML Amp INH SCH (17:55)
[2025-07-27] MEDS ORDERED: Formoterol/Mometasone MDI 5/100 mcg 13 GM INH SCH (18:05)
[2025-07-27] MEDS ORDERED: Ipratropium Bromide INH 0.02% 0.5 mg/2.5ML Vial INH SCH (18:10)
[2025-07-27 20:47] VITALS: BP 131/64
[2025-07-27] MEDS ORDERED: CefTRIAXone Sodium 1,000 MG in NS 100 ML IV SCH (21:00)
[2025-07-28] VITALS: BP 121/69
[2025-07-28 03:56] VITALS: BP 98/63
--- NOTE | 2025-07-28 04:59 | NUR ---
SHIFT SUMMARY: PT AOX4 IND WITH THE URINAL SBA AROUND THE ROOM. CALLS APPROPRIATELY AND ABLE TO MAKE NEEDS KNOWN. COOPERATIVE IN CARE. PT TOLERATING MEDICATIONS WELL, STILL SOUNDS WET BUT IS HAVING A GOOD PRODUCTIVE COUGH WHICH HE STATES IS AGGRAVATING HIS BACK PAIN. MEDICATER FOR PAIN PER EMR. PT STATES THE SHINGLES LESIONS ARE NOT THAT PAINFUL CURRENTLY AND STATES TO BE FEELING BETTER. NO ACUTE OVERNIGHT EVENTS. PT IN BED SLEEPING, BED IN LOWEST POSITION, CALL LIGHT IN REACH. CONTINUING CARE.
[2025-07-28 06:55] LABS: BASOPHILS ABSOLUTE AUTO 0.03 K/mm3 (0.00-0.23); BASOPHILS PERCENT AUTO 0 % (0-2); EOSINOPHILS ABSOLUTE AUTO 0.28 K/mm3 (0.00-0.68); EOSINOPHILS PERCENT AUTO 4 % (0-6); Hematocrit 27.0 % (37.0-53.0); Hemoglobin 8.9 g/dL (13.5-17.5); IMMATURE GRAN ABSOLUTE AUTO 0.02 K/mm3 (0.00-0.10); IMMATURE GRAN PERCENT AUTO 0 % (0-1); LYMPHOCYTES ABSOLUTE AUTO 1.46 K/mm3 (0.84-5.20); LYMPHOCYTES PERCENT AUTO 19 % (21-46); MONOCYTES ABSOLUTE AUTO 0.70 K/mm3 (0.16-1.47); MONOCYTES PERCENT AUTO 9 % (4-13); Mean Corpuscular HGB Conc 33.0 g/dL (31.5-36.5); Mean Corpuscular Volume 99 fL (80-100); NEUTROPHILS ABSOLUTE AUTO 5.15 K/mm3 (1.96-9.15); NEUTROPHILS PERCENT AUTO 67 % (41-73); NRBC ABSOLUTE 0.00 K/mm3 (0.00-0.02); NRBC Auto 0.0 /100 WBC (0.0-0.2); Platelet Count 204 K/mm3 (150-400); RDW Coefficient Variation 12.3 % (11.7-14.2); RDW Standard Deviation 44.5 fL (35.1-46.3)
[2025-07-28 07:10] LABS: Anion Gap 4.0 mmol/L (3-11); Blood Urea Nitrogen 4.0 mg/dL (8-24); CO2, Blood 30.0 mmol/L (21-32); Calcium, Blood 7.9 mg/dL (8.5-10.1); Chloride, Blood 105.0 mmol/L (98-108); Creatinine, Blood 0.66 mg/dL (0.60-1.20); Glucose, Blood 94.0 mg/dL (70-99); Potassium, Blood 3.6 mmol/L (3.5-5.5); Sodium, Blood 135.0 mmol/L (136-145)
[2025-07-28] MEDS ORDERED: Multivitamins 1 Tab PO SCH (09:00)
[2025-07-28 11:46] VITALS: BP 147/67
[2025-07-28 16:56] VITALS: BP 149/66
--- NOTE | 2025-07-28 19:24 | NUR ---
SUMMARY NO ACUTE EVENTS TODAY. PT CONTINUES TO TACHY UP TO 140-150'S WITH MINIMAL EXERTION SUCH STANDING AT EOB TO URINATE. PT SUSTAINING IN LOW 100'S. PT AT BASELINE 3L NC, BUMPING UP TO 4-5 WITH EXERTION. CONTINENT. PRN NORCO GIVEN TWICE THIS SHIFT. PT HAS CHRONIC COUGH, COPD HX. PRODUCING YELLOW PHLEGM. WORKING WITH INCENTIVE OWEN, DEMONSTRATED. CONTINUOUS IV FLUIDS INFUSING T/O SHIFT. ABLE TO MAKE NEEDS KNOWN.
[2025-07-28 20:38] VITALS: BP 136/81
[2025-07-28 23:49] VITALS: BP 104/57
[2025-07-29] VITALS (7 sets, daily range): BP systolic 138–170; BP diastolic 72–87
--- NOTE | 2025-07-29 01:48 | NUR ---
PT YELLING "HELP." THIS BN, WENT INTO THE ROOM. PT REPORTS HE WAS UP FOR BRP. REQUESTING TO HAVE HIS O2 TURNED UP TO "5-6 L" - SATS CURRENTLY 73%, HR 150'S. KATALINA, PCU CLEANING MAID CALLED JUST PRIOR TO ME GOING INTO THE ROOM, REPORTING A HEART RATE IN THE 140-150'S. TURNED O2 UP TO 6L, AND CALLED AMARILIS VALDEZ TO CALL A RAPID. PT A&OX3 - AND REPORTS THIS "HAPPENS WHEN HE GETS UP." HOWEVER, O2 SATS NOT RECOVING. NON-REBREATHING BROUGHT IN BY STAFF, PLACED ON - SATS SLOWING TRENDING UPWARD - HEART RATE CONTINUES 150'S. RAPID CALLED AT 0150. SEE VS. DR. SORIA ARRIVED, AND RAPID RESPONSE TEAM IN ROOM. LYNDA, PRIMARY RN IN ROOM. SATS WNL BY 0152, HEART RATE CONTINUES 130-140. REPORTED OFF TO JAROD HOWELL THE ABOVE INFORMATION.
--- NOTE | 2025-07-29 04:34 | NUR ---
SHIFT SUMMARY: PT AOX4 IND WITH THE URINAL. CALLS APPROPRIATELY AND ABLE TO MAKE NEEDS KNOWN. WHEN STANDING TO USE THE URINAL, PT HAS BEEN DESATTING TO THE 70'S-80'S AND TACHING TO THE 160'S. RESOLVES QUICKLY ON REST. DURING SHIFT, BREAK NURSE SAW THAT HE WASNT RECOVERING QUICKLY AND CALLED A RAPID. PT PUT ON NON REBREATHER BUT HE RECOVERED SHORTLY, AFTER. INSTRUCTED TO USE NONREBREATHER WHILE HE GETS UP TO USE THE RESTROOM, AND OTHERWISE TO USE THE 3L NC WHICH IS HIS BASELINE. SATTING >92% ON 3L AND PULSE ~110-120 ON REST. UPON NEEDING TO USE THE RESTROOM POST RAPID, PT SATTED >92% BUT HR INTO THE 160S. STILL RECOVERED ON REST. PT STATES FEELING FINE AT REST. WORRIED THIS MAY AFFECT HIS ABILITY TO GO HOME. SHINGLES ARE STARTING TO SCAB. LUNGS ARE SOUNDING CLEARER THAN NIGHT PREVIOUS ALTHOUGH STILL ENDORSING PRODUCTIVE COUGH. TOLERATING MEDICATIONS WELL, HAVING BACK PAIN, WHICH IS CHRONIC, EXACCERBATED BY THE COUGHING. MEDICATED PER EMR. PT IS IN BED RESTING, BED IN LOWEST POSITION, CALL LIGHT IN REACH. CONTINUING CARE.
[2025-07-29 06:30] LABS: BASOPHILS ABSOLUTE AUTO 0.04 K/mm3 (0.00-0.23); BASOPHILS PERCENT AUTO 1 % (0-2); EOSINOPHILS ABSOLUTE AUTO 0.34 K/mm3 (0.00-0.68); EOSINOPHILS PERCENT AUTO 4 % (0-6); Hematocrit 29.0 % (37.0-53.0); Hemoglobin 9.4 g/dL (13.5-17.5); IMMATURE GRAN ABSOLUTE AUTO 0.03 K/mm3 (0.00-0.10); IMMATURE GRAN PERCENT AUTO 0 % (0-1); LYMPHOCYTES ABSOLUTE AUTO 1.44 K/mm3 (0.84-5.20); LYMPHOCYTES PERCENT AUTO 18 % (21-46); MONOCYTES ABSOLUTE AUTO 0.71 K/mm3 (0.16-1.47); MONOCYTES PERCENT AUTO 9 % (4-13); Mean Corpuscular HGB Conc 32.4 g/dL (31.5-36.5); Mean Corpuscular Volume 99 fL (80-100); NEUTROPHILS ABSOLUTE AUTO 5.44 K/mm3 (1.96-9.15); NEUTROPHILS PERCENT AUTO 68 % (41-73); NRBC ABSOLUTE 0.00 K/mm3 (0.00-0.02); NRBC Auto 0.0 /100 WBC (0.0-0.2); Platelet Count 253 K/mm3 (150-400); RDW Coefficient Variation 12.5 % (11.7-14.2); RDW Standard Deviation 45.3 fL (35.1-46.3)
[2025-07-29 06:42] LABS: Anion Gap 6.0 mmol/L (3-11); Blood Urea Nitrogen 3.0 mg/dL (8-24); CO2, Blood 29.0 mmol/L (21-32); Calcium, Blood 8.1 mg/dL (8.5-10.1); Chloride, Blood 105.0 mmol/L (98-108); Creatinine, Blood 0.75 mg/dL (0.60-1.20); Glucose, Blood 100.0 mg/dL (70-99); Potassium, Blood 3.5 mmol/L (3.5-5.5); Sodium, Blood 136.0 mmol/L (136-145)
[2025-07-29] MEDS ORDERED: METO25ER PO (11:25)
--- NOTE | 2025-07-29 15:36 | NUR ---
SUMMARY I COMPLETED PT MED REC ON SUNDAY BUT AFTER DISCUSSING WITH PT DIFFERENT CAUSES OF HIS TACHYCARDIA HE MENTIONS HE NORMALLY TAKES SOMETHING FOR HIS HEART. I ASKED TO SEE HIS MED LIST AGAIN AND HE DOES IN FACT TAKE METOPROLOL SUCCINATE XL [address] SCHUMACHER WAS NOTIFIED AND ORDERED TO START NOW AND THEN DAILY. CONTINUOUS TELE MONITORING ONGOING. POSSIBLE DC TOMORROW IF HR MORE CONTROLLED WITH ACTIVITY.
[2025-07-29] MEDS ORDERED: TRAZ50 PO (20:12)
[2025-07-30 04:37] VITALS: BP 148/74
--- NOTE | 2025-07-30 05:26 | NUR ---
SHIFT SUMMARY NOC PT A/O X 4. PLEASANNT AND COOPERATIVE WITH CARE. VSS. NO ACUTE CHANGES TO REPORT. PT ON 4L/NC AT REST, BUT STILL REQUIRING 10-12L NON REBREATHER WHEN AMBULATING AND DESATS INTO HIGH 70'S. PT ON AIRBORNE ISOLATION FOR ACTIVE SHINGLES. PT ON TELE NSR IN 80'S. PT EXPECTED TO DISCHARGE HOME TODAY. PT CURRENTLY RESTING WITH BED IN LOWEST POSITION, AND CALL LIGHT WITHIN REACH.
[2025-07-30 06:58] LABS: BASOPHILS ABSOLUTE AUTO 0.03 K/mm3 (0.00-0.23); BASOPHILS PERCENT AUTO 1 % (0-2); EOSINOPHILS ABSOLUTE AUTO 0.32 K/mm3 (0.00-0.68); EOSINOPHILS PERCENT AUTO 5 % (0-6); Hematocrit 29.4 % (37.0-53.0); Hemoglobin 9.6 g/dL (13.5-17.5); IMMATURE GRAN ABSOLUTE AUTO 0.02 K/mm3 (0.00-0.10); IMMATURE GRAN PERCENT AUTO 0 % (0-1); LYMPHOCYTES ABSOLUTE AUTO 1.54 K/mm3 (0.84-5.20); LYMPHOCYTES PERCENT AUTO 23 % (21-46); MONOCYTES ABSOLUTE AUTO 0.60 K/mm3 (0.16-1.47); MONOCYTES PERCENT AUTO 9 % (4-13); Mean Corpuscular HGB Conc 32.7 g/dL (31.5-36.5); Mean Corpuscular Volume 98 fL (80-100); NEUTROPHILS ABSOLUTE AUTO 4.13 K/mm3 (1.96-9.15); NEUTROPHILS PERCENT AUTO 62 % (41-73); NRBC ABSOLUTE 0.00 K/mm3 (0.00-0.02); NRBC Auto 0.0 /100 WBC (0.0-0.2); Platelet Count 249 K/mm3 (150-400); RDW Coefficient Variation 12.4 % (11.7-14.2); RDW Standard Deviation 45.0 fL (35.1-46.3)
[2025-07-30 07:35] LABS: Anion Gap 4.0 mmol/L (3-11); Blood Urea Nitrogen 4.0 mg/dL (8-24); CO2, Blood 32.0 mmol/L (21-32); Calcium, Blood 8.5 mg/dL (8.5-10.1); Chloride, Blood 102.0 mmol/L (98-108); Creatinine, Blood 0.71 mg/dL (0.60-1.20); Glucose, Blood 86.0 mg/dL (70-99); Potassium, Blood 3.9 mmol/L (3.5-5.5); Sodium, Blood 134.0 mmol/L (136-145)
[2025-07-30 08:17] VITALS: BP 154/75
[2025-07-30 12:28] VITALS: BP 152/80
[2025-07-30] MEDS ORDERED: CEFP200 PO (13:39)
[2025-07-30] MEDS ORDERED: VALA500 PO (13:40)
--- NOTE | 2025-07-30 14:20 | NUR ---
PT DISCHARGED TO HOME. ALL VALUABLES RETURNED AND SENT HOME WITH THE PT. DISCHARGE INSTRUCTIONS PROVIDED AND EDUCATED ON AT TIME OF DISCHARGE. MEDICATIONS FAXED TO [facility].
[2025-07-30] MEDS ORDERED: Lactobacil 2-S.Thermo-Bifido 1 1 Cap PO SCH (21:00)
== END 2025-07-30 14:43 | disposition home or self-care (01) | DRG 871 ==
LOC: ER 16:01 → MEDS 16:02
PROVIDERS: Emergency Medicine; Internal Medicine; Nurse Practitioner Acute Care; Student in an Organized Health Care Education/Training Program; ADMIT Student in an Organized Health Care Education/Training Program
PROC: 3E033XZ Introduction of Vasopressor into Peripheral Vein, Percutaneous Approach (ICD-10-PCS; principal; 2025-07-26)
PROC: 3E03329 Introduction of Other Anti-infective into Peripheral Vein, Percutaneous Approach (ICD-10-PCS; 2025-07-27)
DX: A41.9 Sepsis, unspecified organism (principal); J18.9 Pneumonia, unspecified organism; J96.21 Acute and chronic respiratory failure with hypoxia; E87.1 Hypo-osmolality and hyponatremia; M48.54XA Collapsed vertebra, not elsewhere classified, thoracic region, initial encounter for fracture; J44.1 Chronic obstructive pulmonary disease with (acute) exacerbation; I25.10 Atherosclerotic heart disease of native coronary artery without angina pectoris; E78.5 Hyperlipidemia, unspecified; K80.20 Calculus of gallbladder without cholecystitis without obstruction; R65.20 Severe sepsis without septic shock; I71.9 Aortic aneurysm of unspecified site, without rupture; I10 Essential (primary) hypertension; N40.0 Benign prostatic hyperplasia without lower urinary tract symptoms; B02.9 Zoster without complications; G47.33 Obstructive sleep apnea (adult) (pediatric); G47.00 Insomnia, unspecified; R13.12 Dysphagia, oropharyngeal phase; G89.4 Chronic pain syndrome; I73.9 Peripheral vascular disease, unspecified; F17.210 Nicotine dependence, cigarettes, uncomplicated; Z79.891 Long term (current) use of opiate analgesic; Z79.82 Long term (current) use of aspirin; Z79.52 Long term (current) use of systemic steroids; Z98.890 Other specified postprocedural states; Z79.899 Other long term (current) drug therapy; Z95.1 Presence of aortocoronary bypass graft; Z90.89 Acquired absence of other organs; Z85.89 Personal history of malignant neoplasm of other organs and systems; Z90.49 Acquired absence of other specified parts of digestive tract; Z95.4 Presence of other heart-valve replacement; Z88.5 Allergy status to narcotic agent
CPT/HCPCS: 0202U; 36415; 71046; 71275; 80048; 80053; 82803; 83605; 83690; 83880; 84145; 84484; 85025; 87040; 87449; 87637; 93005; 93010; 94640; 94664; 94761; 94762; 96361; 96374-59; 96375-59; 99285-25; A9270; G0378; J0456; J0696; J1650; J7030; J7050; J7120; Q9967

== ENCOUNTER → 2025-08-01 | Outpatient (CLI) | payer MEDICARE, BC ==
[~2025-08-01] MED LIST changes: +ALEN70 PO; +CILOSTAZOL50 M1 PO; +METO25ER PO; +MULVITA PO; +TRAZ50 PO; +TRELEGY ELLIPT1 EAC1 IH; +VALA500 PO
[2025-08-01 13:10] LABS: BASOPHILS ABSOLUTE AUTO 0.06 K/mm3 (0.00-0.23); BASOPHILS PERCENT AUTO 1 % (0-2); EOSINOPHILS ABSOLUTE AUTO 0.17 K/mm3 (0.00-0.68); EOSINOPHILS PERCENT AUTO 2 % (0-6); Hematocrit 33.4 % (37.0-53.0); Hemoglobin 10.9 g/dL (13.5-17.5); IMMATURE GRAN ABSOLUTE AUTO 0.03 K/mm3 (0.00-0.10); IMMATURE GRAN PERCENT AUTO 0 % (0-1); LYMPHOCYTES ABSOLUTE AUTO 2.02 K/mm3 (0.84-5.20); LYMPHOCYTES PERCENT AUTO 19 % (21-46); MONOCYTES ABSOLUTE AUTO 0.87 K/mm3 (0.16-1.47); MONOCYTES PERCENT AUTO 8 % (4-13); Mean Corpuscular HGB Conc 32.6 g/dL (31.5-36.5); Mean Corpuscular Volume 98 fL (80-100); NEUTROPHILS ABSOLUTE AUTO 7.28 K/mm3 (1.96-9.15); NEUTROPHILS PERCENT AUTO 70 % (41-73); NRBC ABSOLUTE 0.00 K/mm3 (0.00-0.02); NRBC Auto 0.0 /100 WBC (0.0-0.2); Platelet Count 333 K/mm3 (150-400); RDW Coefficient Variation 12.2 % (11.7-14.2); RDW Standard Deviation 43.8 fL (35.1-46.3)
[2025-08-01 13:22] LABS: Alanine Aminotransfer (ALT/SGP 33.0 U/L (12-78); Albumin, Blood 3.2 g/dL (3.4-5.0); Albumin/Globulin Ratio 0.7 (0.8-1.8); Anion Gap 14.0 mmol/L (3-11); Aspartate Aminotrans (AST/SGOT 33.0 U/L (12-37); Bilirubin, Total 0.5 mg/dL (0.1-1.0); Blood Urea Nitrogen 9.0 mg/dL (8-24); CO2, Blood 31.0 mmol/L (21-32); Calcium, Blood 9.4 mg/dL (8.5-10.1); Chloride, Blood 98.0 mmol/L (98-108); Creatinine, Blood 0.84 mg/dL (0.60-1.20); Globulin, Blood 4.4 g/dL (2.2-4.0); Glucose, Blood 95.0 mg/dL (70-99); Potassium, Blood 4.4 mmol/L (3.5-5.5); Sodium, Blood 139.0 mmol/L (136-145); Total Protein, Blood 7.6 g/dL (6.4-8.2)
[2025-08-04 12:57] LABS: QUANTIFERON MITOGEN MINUS NIL 8.45 IU/mL; QUANTIFERON NIL 0.04 IU/mL; QUANTIFERON PLUS TB1 MINUS NIL 0.00 IU/mL (<=0.34); QUANTIFERON PLUS TB2 MINUS NIL 0.00 IU/mL (<=0.34)
== END ==
LOC: LAB SHORT 13:06 → LAB 13:06
PROVIDERS: Family Medicine
DX: R04.2 Hemoptysis (principal)
CPT/HCPCS: 80053; 85025; 86480

== ENCOUNTER → 2025-08-20 | Outpatient (CLI) | payer MEDICARE, BC ==
[2025-08-20 16:20] LABS: U Amphetamine Screen Not Detected; U Barbituate Screen Not Detected; U Benzodiazapine Screen Not Detected; U Buprenorphine Screen Not Detected; U Cannabinoids Screen Not Detected; U Cocaine Screen Not Detected; U Methadone Screen Not Detected; U Methamphetamine Screen Not Detected; U Opiates Screen DETECTED; U Oxycodone Screen Not Detected; U Phencyclidine Screen Not Detected
== END ==
LOC: LAB 13:15 → LAB SHORT 13:15
PROVIDERS: Internal Medicine Hematology & Oncology
DX: G89.4 Chronic pain syndrome (principal); Z79.899 Other long term (current) drug therapy